=== PATIENT | male | born 1965 | race Caucasian/White ===

== ENCOUNTER → 2019-11-15 08:42 | Outpatient (CLI) | payer BC, SELFPAY ==
[2019-11-15 09:00] LABS: Basophils # 0.1 K/mm3 (0-0.2); Basophils % 0.7 % (0.1-2.0); Eosinophils # 0.2 K/mm3 (0.0-0.4); Eosinophils % 2.4 % (0.1-12.0); Hematocrit 45.6 % (42.0-52.0); Hemoglobin 14.8 g/dL (14.1-18.0); Lymphocytes % 24.3 % (10-50); Mean Corpuscular HGB Conc 32.4 g/dL (31.8-35.4); Mean Corpuscular Hemoglobin 26.8 pg (27.0-31.2); Mean Corpuscular Volume 82.5 fl (80-94); Monocytes # 0.4 K/mm3 (0.1-1.0); Monocytes % 4.5 % (1.7-9.3); Neutrophils # 5.7 K/mm3 (1.8-7.8); Neutrophils % 68.1 % (37.0-80.0); Platelet Count 336 K/mm3 (142-424); Red Blood Count 5.53 M/mm3 (4.60-6.20); Red Cell Distribution Width 14.5 % (11.5-17.5); White Blood Count 8.3 K/mm3 (4.8-10.8)
[2019-11-15 09:14] LABS: Blood Urea Nitrogen 34 mg/dL (7-18); Calcium 7.9 mg/dL (8.5-10.1); Carbon Dioxide 25 mmol/L (21.0-32.0); Chloride 103 mmol/L (98-107); Creatinine,Serum 1.81 mg/dL (0.70-1.30); Estimated Glomerular Filt Rate 39 ml/min (>60); GFR (African American) 47 ML/MIN (>60); Glucose 193 mg/dL (74-106); Sodium 135 mmol/L (136-145)
--- NOTE | 2019-11-15 09:51 | CA_ITS ---
APPROVED REPORT EXAM: Comprehensive 2D, Doppler, and color-flow Echocardiogram Loader Machine: Xochitl Kaur RT(R) Ht: 5 ft 2 in Wt: 152lbs BSA: 1.70 BP: 118/68 mmHg Indications: ex smoker, HTN, diabetes, 2 cardiac stents 1 week ago 2D Dimensions LVOT 1.78 cm (M/F) 1.5-2.5 M-Mode Dimensions RVDd 2.06 cm (0.9-2.6) LVDd 5.11 cm (3.5-5.7) LVDs 3.77 cm (3.5-5.7) IVSd 0.95 cm (0.6-1.1) PWd 0.91 cm (0.6-1.1) EF (Teich) 51.10% FS 26.20% EDV (Teich) 124.40 mL ESV (Teich) 60.80 mL LV Diastology E/A Ratio 1.47 Mitral Valve MV A Velocity 60.00 (40-130 cm/s) Left Ventricle Left atrium is mildly enlarged, left ventricle is normal size, mild concentric left ventricular hypertrophy, visually estimated ejection fraction 50%, there is mild apical wall hypokinesis, grade 1 diastolic dysfunction seen with tissue Doppler evidence of raise left atrial pressure. Right Ventricle Right atrium and right ventricular normal size and contractility. Aortic Valve Aortic valve is thickened and calcified leaflet chordae display good mobility, there is no aortic stenosis or aortic insufficiency. Mitral Valve Mitral valve leaflets are minimally thickened, there is no mitral stenosis, there is mild mitral regurgitation. Tricuspid Valve Tricuspid valve is grossly normal, there is mild tricuspid regurgitation. Pulmonic Valve Pulmonic valve is poorly visualized. Great Vessels Aortic root is normal size. Pericardium Trivial pericardial effusion noted. Conclusion 1. Mildly enlarged left atrium, normal left ventricular size, mild concentric left ventricular hypertrophy, visually estimated ejection fraction of 50% with segmental wall motion abnormality described above. Grade 1 diastolic dysfunction seen with tissue Doppler evidence of raise left atrial pressure. 2. Mild mitral and tricuspid regurgitation. 3. Trivial pericardial effusion noted. Electronically signed by : Bernardo Denise, 11/16/2019 05:58:27
== END ==
PROVIDERS: PCP Family Medicine; Visit Provider Internal Medicine
DX: E11.9 Type 2 diabetes mellitus without complications (principal); E78.5 Hyperlipidemia, unspecified; I10 Essential (primary) hypertension; I20.0 Unstable angina; R06.00 Dyspnea, unspecified; R61 Generalized hyperhidrosis; R94.31 Abnormal electrocardiogram [ECG] [EKG]; Z87.891 Personal history of nicotine dependence; Z95.5 Presence of coronary angioplasty implant and graft; Z79.4 Long term (current) use of insulin
CPT/HCPCS: 36415; 80048; 85025; 93306

== ENCOUNTER → 2021-07-05 13:34 | Outpatient (CLI) | payer BC, SELFPAY ==
[2021-07-05 13:54] LABS: Basophils # 0.1 K/mm3 (0-0.2); Basophils % 0.9 % (0.1-2.0); Eosinophils # 0.3 K/mm3 (0.0-0.4); Eosinophils % 3.2 % (0.1-12.0); Hematocrit 39.7 % (42.0-52.0); Hemoglobin 13.2 g/dL (14.1-18.0); Lymphocytes # 2.2 K/mm3 (0.7-4.5); Lymphocytes % 25.1 % (10-50); Mean Corpuscular HGB Conc 33.3 g/dL (31.8-35.4); Mean Corpuscular Hemoglobin 26.3 pg (27.0-31.2); Mean Corpuscular Volume 78.9 fl (80-94); Mean Platelet Volume 7.9 fl (7.4-10.4); Monocytes # 0.3 K/mm3 (0.1-1.0); Monocytes % 3.7 % (1.7-9.3); Neutrophils # 5.8 K/mm3 (1.8-7.8); Neutrophils % 67.1 % (37.0-80.0); Platelet Count 260 K/mm3 (142-424); Red Blood Count 5.03 M/mm3 (4.60-6.20); Red Cell Distribution Width 14.8 % (11.5-17.5); White Blood Count 8.6 K/mm3 (4.8-10.8)
[2021-07-05 14:10] LABS: Alanine Aminotransferase 18 U/L (12-78); Albumin Level 2.6 g/dl (3.5-5.0); Alkaline Phosphatase 134 U/L (38-126); Anion Gap 12.7 mEq/L (5-15); Aspartate Amino Transferase 20 U/L (17-59); Bilirubin,Total 0.4 mg/dl (0.2-1.3); Blood Urea Nitrogen 36 mg/dl (9-20); Calcium 7.5 mg/dl (8.4-10.2); Carbon Dioxide 18 mmol/L (22.0-30.0); Chloride 110 mmol/L (98-107); Estimated Glomerular Filt Rate 20 ml/min (>60); GFR (African American) 24 ML/MIN (>60); Globulin 2.6 g/dL (1.3-3.2); Glucose 241 mg/dl (74-100); Potassium 4.7 mmoL/L (3.5-5.1); Sodium 136 mmol/L (136-145); Total Protein,Serum 5.2 g/dl (6.3-8.2)
[2021-07-05 14:27] LABS: Hemoglobin A1C 8.3 % (4.0-6.0)
[2021-07-05 14:41] LABS: Prostate Specific Ag Screen 0.3 ng/ml (0.0-4.0)
== END ==
PROVIDERS: Visit Provider Family Medicine
DX: E11.9 Type 2 diabetes mellitus without complications (principal); Z12.5 Encounter for screening for malignant neoplasm of prostate; Z79.4 Long term (current) use of insulin
CPT/HCPCS: 80053; 83036; 85025; G0103

== ENCOUNTER → 2021-08-01 16:51 | Outpatient (CLI) | payer BC, SELFPAY ==
[2021-08-01 18:29] LABS: Alanine Aminotransferase 22 U/L (12-78); Albumin Level 2.7 g/dl (3.5-5.0); Albumin/Globulin Ratio 1.1 (1.1-1.8); Alkaline Phosphatase 85 U/L (38-126); Anion Gap 14.4 mEq/L (5-15); Aspartate Amino Transferase 35 U/L (17-59); Bilirubin,Total 0.5 mg/dl (0.2-1.3); Blood Urea Nitrogen 49 mg/dl (9-20); Calcium 7.5 mg/dl (8.4-10.2); Carbon Dioxide 16 mmol/L (22.0-30.0); Chloride 109 mmol/L (98-107); Estimated Glomerular Filt Rate 19 ml/min (>60); GFR (African American) 23 ML/MIN (>60); Globulin 2.4 g/dL (1.3-3.2); Glucose 117 mg/dl (74-100); Potassium 5.4 mmoL/L (3.5-5.1); Sodium 134 mmol/L (136-145); Total Protein,Serum 5.1 g/dl (6.3-8.2)
== END ==
PROVIDERS: Visit Provider Family Medicine
DX: N28.9 Disorder of kidney and ureter, unspecified (principal)
CPT/HCPCS: 80053

== ENCOUNTER → 2021-08-13 13:02 | Outpatient (CLI) | payer BC, SELFPAY ==
--- NOTE | 2021-08-13 13:03 | US_ITS ---
PROCEDURE: US KIDNEY CLINICAL INDICATION: Decreased renal function COMPARISON: No exams were available for comparison FINDINGS: Right kidney is 11 x 5 x 8 cm. Left kidney is 10 x 6 x 6 cm. No renal mass or hydronephrosis or significant cortical renal thinning. There is a minimal amount. Nephric fluid on both sides. IMPRESSION: Negative appearance of the kidneys by ultrasound Minimal amount of perinephric fluid Dictated by: Edgar Greene MD 08/13/2021 15:28 Edgar Greene MD in [place] 08/13/2021 15:28
== END ==
PROVIDERS: PCP Family Medicine; Visit Provider Family Medicine
DX: N19 Unspecified kidney failure (principal)
CPT/HCPCS: 76770

== ENCOUNTER → 2021-08-15 16:44 | Outpatient (CLI) | payer BC, SELFPAY ==
[2021-08-15 16:55] LABS: Microscopic, Urine URINE MICROSCOPIC (MICROSCOPIC)
[2021-08-15 18:17] LABS: Basophils # 0.1 K/mm3 (0-0.2); Basophils % 1.1 % (0.1-2.0); Eosinophils # 0.3 K/mm3 (0.0-0.4); Eosinophils % 3.9 % (0.1-12.0); Hematocrit 34.8 % (42.0-52.0); Hemoglobin 11.2 g/dL (14.1-18.0); Lymphocytes # 2.6 K/mm3 (0.7-4.5); Lymphocytes % 31.4 % (10-50); Mean Corpuscular HGB Conc 32.1 g/dL (31.8-35.4); Mean Corpuscular Hemoglobin 27.3 pg (27.0-31.2); Mean Corpuscular Volume 85.1 fl (80-94); Monocytes # 0.5 K/mm3 (0.1-1.0); Monocytes % 5.4 % (1.7-9.3); Neutrophils # 4.9 K/mm3 (1.8-7.8); Neutrophils % 58.2 % (37.0-80.0); Platelet Count 268 K/mm3 (142-424); Red Blood Count 4.08 M/mm3 (4.60-6.20); Red Cell Distribution Width 14.2 % (11.5-17.5); White Blood Count 8.4 K/mm3 (4.8-10.8)
[2021-08-15 18:20] LABS: Chloride 110 mmol/L (98-107); Potassium 4.8 mmoL/L (3.5-5.1); Sodium 136 mmol/L (136-145)
[2021-08-15 18:23] LABS: Anion Gap 12.8 mEq/L (5-15); Blood Urea Nitrogen 51 mg/dl (9-20); Calcium 7.5 mg/dl (8.4-10.2); Carbon Dioxide 18 mmol/L (22.0-30.0); Estimated Glomerular Filt Rate 19 ml/min (>60); GFR (African American) 23 ML/MIN (>60); Glucose 111 mg/dl (74-100)
[2021-08-15 18:24] LABS: Magnesium 1.9 mg/dl (1.6-2.3)
[2021-08-15 18:25] LABS: Appearance,Urine CLEAR (Clear); Bilirubin,Urine Negative (Negative); Blood, Urine 1+ (Negative); Color,Urine STRAW (Yellow); Glucose,Urine (UA) 2+ (Negative); Ketones,Urine Negative (Negative); Leukocyte Esterase,Urine Negative (Negative); Nitrate,Urine Negative (Negative); Protein,Urine 3+ (Negative); Specific Gravity, Urine >= 1.030 (1.005-1.030); Urobilinogen,Urine 0.2 EU/dl (0.2)
[2021-08-15 18:49] LABS: Uric Acid 5.3 mg/dl (3.5-8.5)
[2021-08-15 19:02] LABS: Intact Parathyroid Hormone 409.8 pg/mL (7.5-53.5)
[2021-08-15 20:18] LABS: 25-OH Vitamin D, Total < 12.8 ng/mL (30-100)
[2021-08-16 12:39] LABS: Creatinine,Urine Random 76 mg/dL (Not Estab.)
[2021-08-27 22:21] LABS: 1,25 Dihydroxy Vitamin D 26 pg/mL (.); 1,25-Dihydroxy, Vitamin D-2 <10 pg/mL (.); 1,25-Dihydroxy, Vitamin D-3 26 pg/mL (.)
== END ==
PROVIDERS: Visit Provider Internal Medicine
DX: N18.9 Chronic kidney disease, unspecified (principal); E78.5 Hyperlipidemia, unspecified; E11.9 Type 2 diabetes mellitus without complications; E55.9 Vitamin D deficiency, unspecified; Z79.4 Long term (current) use of insulin
CPT/HCPCS: 36415; 80048; 81001; 82306; 82570; 82652; 83735; 83970; 84155; 84166; 84550; 85025

== ENCOUNTER → 2021-10-03 13:54 | Outpatient (CLI) | payer BC, SELFPAY ==
[2021-10-03 14:11] LABS: Basophils # 0.1 K/mm3 (0-0.2); Basophils % 0.8 % (0.1-2.0); Eosinophils # 0.2 K/mm3 (0.0-0.4); Eosinophils % 2.7 % (0.1-12.0); Hematocrit 34.4 % (42.0-52.0); Lymphocytes # 1.7 K/mm3 (0.7-4.5); Lymphocytes % 25.3 % (10-50); Mean Corpuscular Hemoglobin 27.8 pg (27.0-31.2); Mean Corpuscular Volume 87.1 fl (80-94); Mean Platelet Volume 8.3 fl (7.4-10.4); Monocytes # 0.3 K/mm3 (0.1-1.0); Monocytes % 4.4 % (1.7-9.3); Neutrophils # 4.5 K/mm3 (1.8-7.8); Neutrophils % 66.8 % (37.0-80.0); Platelet Count 310 K/mm3 (142-424); Red Blood Count 3.94 M/mm3 (4.60-6.20); Red Cell Distribution Width 14.9 % (11.5-17.5); White Blood Count 6.7 K/mm3 (4.8-10.8)
[2021-10-03 14:53] LABS: Hemoglobin A1C 5.1 % (4.0-6.0)
[2021-10-03 15:20] LABS: Anion Gap 10.2 mEq/L (5-15); Blood Urea Nitrogen 57 mg/dl (9-20); Calcium 6.9 mg/dl (8.4-10.2); Carbon Dioxide 17 mmol/L (22.0-30.0); Chloride 111 mmol/L (98-107); Chol/HDL Ratio 5.8 (1-3.5); Cholesterol 263 mg/dl (140-200); Estimated Glomerular Filt Rate 15 ml/min (>60); GFR (African American) 18 ML/MIN (>60); Glucose 165 mg/dl (74-100); HDL Cholesterol 45 mg/dl (40-60); Phosphorous 7.2 mg/dl (2.5-4.5); Potassium 5.2 mmoL/L (3.5-5.1); Sodium 133 mmol/L (136-145); Triglycerides 142 mg/dl (30-150); VLDL Cholesterol 28 mg/dL (0-40)
[2021-10-03 15:30] LABS: Direct LDL Cholesterol 176.99 mg/dL (100-129)
[2021-10-03 15:41] LABS: 25-OH Vitamin D, Total < 12.8 ng/mL (30-100)
== END ==
PROVIDERS: Visit Provider Family Medicine
DX: E11.9 Type 2 diabetes mellitus without complications (principal); E55.9 Vitamin D deficiency, unspecified; Z79.4 Long term (current) use of insulin
CPT/HCPCS: 80048; 80061; 82306; 83036; 83970; 84100; 85025; 86140

== ENCOUNTER 2021-11-30 15:03 | Emergency (ER) | payer BC, SELFPAY ==
[2021-11-30 15:05] VITALS: BP 196/89; PULSE 80; RESP 28; TEMP 37.1; O2SAT 98; BMI 26.9
--- NOTE | 2021-11-30 15:13 | XR_ITS ---
PROCEDURE INFORMATION: Exam: XR Chest Exam date and time: 11/30/2021 3:13 PM Age: 56 years old Clinical indication: Shortness of breath; Additional info: Short of breath TECHNIQUE: Imaging protocol: XR of the chest. Views: 1 view. COMPARISON: No relevant prior studies available. FINDINGS: Lungs: Innumerable punctate densities are noted throughout both lungs. Patchy airspace opacities consistent with pneumonia present within both lung bases, greater on the right. Pleural spaces: Right pleural effusion. There is no evidence of pneumothorax. Heart/Mediastinum: Unremarkable. No cardiomegaly. Bones/joints: The thoracic spine demonstrates mild degenerative changes at multiple levels. IMPRESSION: 1. Innumerable punctate densities are noted throughout both lungs. Comparison with prior studies and/or follow-up CT scan of the chest is recommended. 2. Patchy airspace opacities consistent with pneumonia present within both lung bases, greater on the right. 3. Right pleural effusion.
--- NOTE | 2021-11-30 15:18 | HMH.EDGENADL ---
ED Disposition Clinical Impression: Chronic kidney disease, stage IV (severe), Pedal edema, Calcified granuloma of lung CHF (congestive heart failure) Qualifiers: Heart failure type: unspecified Heart failure chronicity: unspecified Qualified Code(s): I50.9 - Heart failure, unspecified Disposition: Home, Self-Care Condition on Discharge: Fair Instructions: Chronic Kidney Disease, DI for Dependent Edema, DI for Peripheral Edema -- Bilateral Additional Instructions: You have been evaluated for lower extremity swelling, pedal edema. Please follow salt restriction. Elevate your legs when at rest. Take 40 mg daily Lasix. You have advanced chronic kidney disease. Also an element of congestive heart failure. Please follow-up with your design editor, Dr. Cisneros. Follow-up with your primary care physician, Dr. Zimmerman, on Thursday. You would likely benefit from an echocardiogram. Your chest x-ray shows small areas of calcification, likely granulomas. Please have a chest CT within the next 6 months. Return to the emergency department for any new or worsening symptoms, difficulty breathing, pain, other concerns. Prescriptions: Furosemide [Lasix 40mg tab] 40 mg PO DAILY #10 tab Transmission Status: Received by [id number] Referrals: Guanako Zimmerman MD [Primary Care Provider] - Time of Disposition: 17:01 - Critical Care Critical Care Time: No Attestation: On , the high probability of a clinically significant, sudden or life threatening deterioration of the following system(s) required my full and direct attention, intervention and personal management. The time I documented below is in addition to time spent performing reported procedures but includes the following listed in this critical care notation. Medical Decision Making - Medical Records Medical records reviewed: Yes: I reviewed the patient's medical records. - Seth Inquiry Pt receiving controlled substance: No Vital Signs: 11/30/21 15:05 11/30/21 16:00 11/30/21 16:29 Temperature 98.7 F Temperature Source Oral Pulse Rate 75 68 Pulse Rate [Radial] 80 Respiratory Rate 28 H Blood Pressure 147/72 H 136/74 Blood Pressure [Right Arm] 196/89 H Blood Pressure Mean [Right Arm] 124 Blood Pressure Position [Right Arm] Sitting 02 Sat by Pulse Oximetry 98 97 96 Oxygen Delivery Method Room Air 11/30/21 17:01 Temperature Temperature Source Pulse Rate 70 Pulse Rate [Radial] Respiratory Rate Blood Pressure 156/81 H Blood Pressure [Right Arm] Blood Pressure Mean [Right Arm] Blood Pressure Position [Right Arm] 02 Sat by Pulse Oximetry 99 Oxygen Delivery Method - Lab Data Lab Results 11/30/21 15:14: WBC 8.3, RBC 3.67 L, Hgb 10.3 L, Hct 31.9 L, MCV 86.7, MCH 28.1, MCHC 32.4, RDW 14.3, Plt Count 287, MPV 7.6, Neut % (Auto) 70.2, Lymph % (Auto) 20.2, [place] % (Auto) 4.8, Eos % (Auto) 3.7, Baso % (Auto) 1.2, Neut # (Auto) 5.8, Lymph # (Auto) 1.7, [place] # (Auto) 0.4, Eos # (Auto) 0.3, Baso # (Auto) 0.1 11/30/21 15:14: Sodium 139, Potassium 4.9, Chloride 110 H, Carbon Dioxide 22, Anion Gap 11.9, BUN 51 H, Creatinine 4.50 H, Estimated Creat Clear 18, Estimated GFR 14 L*, Est GFR ( Amer) 16 L*, Glucose 165 H, Calcium 7.4 L, Total Bilirubin 0.2, AST 21, ALT 18, Alkaline Phosphatase 76, Total Protein 5.5 L, Albumin 2.7 L, Globulin 2.8, Albumin/Globulin Ratio 1.0 L 11/30/21 15:14: NT-Pro-B Natriuret Pep 9690 H Result diagrams: 11/30/21 15:14 11/30/21 15:14 Orders (Tests/Meds): ED MEDICATIONS Discontinued Medications Generic Name Dose Route Start Last Admin Trade Name Freq PRN Reason Stop Dose Admin Furosemide 40 mg 11/30/21 16:54 11/30/21 17:10 Furosemide 40 Mg Tablet PO 11/30/21 16:55 Not Given ONCE ONE Furosemide 40 mg 11/30/21 16:57 11/30/21 17:06 Furosemide 40mg/4ml Vial IV 11/30/21 16:58 40 mg ONCE ONE Administration ORDERS Category Date Time Status Urinalysis and Microscopic Stat
--- NOTE | 2021-11-30 15:20 | ECG_ITS ---
APPROVED REPORT Exam: Resting ECG HR:75 bpm ECG Measurements Heart Rate 75 AXES MO 152 P 26 QRSd 88 QRS -14 QT 382 T 54 QTc 426 Conclusion Normal sinus rhythm Normal ECG Electronically signed by : Freddy Mora MD 12/02/2021 21:42:54
[2021-11-30 15:31] LABS: Basophils # 0.1 K/mm3 (0-0.2); Basophils % 1.2 % (0.1-2.0); Eosinophils # 0.3 K/mm3 (0.0-0.4); Eosinophils % 3.7 % (0.1-12.0); Hematocrit 31.9 % (42.0-52.0); Hemoglobin 10.3 g/dL (14.1-18.0); Lymphocytes # 1.7 K/mm3 (0.7-4.5); Lymphocytes % 20.2 % (10-50); Mean Corpuscular HGB Conc 32.4 g/dL (31.8-35.4); Mean Corpuscular Hemoglobin 28.1 pg (27.0-31.2); Mean Corpuscular Volume 86.7 fl (80-94); Mean Platelet Volume 7.6 fl (7.4-10.4); Monocytes # 0.4 K/mm3 (0.1-1.0); Monocytes % 4.8 % (1.7-9.3); Neutrophils # 5.8 K/mm3 (1.8-7.8); Neutrophils % 70.2 % (37.0-80.0); Platelet Count 287 K/mm3 (142-424); Red Blood Count 3.67 M/mm3 (4.60-6.20); Red Cell Distribution Width 14.3 % (11.5-17.5); White Blood Count 8.3 K/mm3 (4.8-10.8)
[2021-11-30 15:38] LABS: Chloride 110 mmol/L (98-107); Potassium 4.9 mmoL/L (3.5-5.1); Sodium 139 mmol/L (136-145)
[2021-11-30 15:40] LABS: Alanine Aminotransferase 18 U/L (12-78); Aspartate Amino Transferase 21 U/L (17-59); Blood Urea Nitrogen 51 mg/dl (9-20); Creatinine Clearance Estimated 18 mL/min (50-200); Estimated Glomerular Filt Rate 14 ml/min (>60); GFR (African American) 16 ML/MIN (>60)
[2021-11-30 15:41] LABS: Albumin Level 2.7 g/dl (3.5-5.0); Alkaline Phosphatase 76 U/L (38-126); Anion Gap 11.9 mEq/L (5-15); Bilirubin,Total 0.2 mg/dl (0.2-1.3); Calcium 7.4 mg/dl (8.4-10.2); Carbon Dioxide 22 mmol/L (22.0-30.0); Globulin 2.8 g/dL (1.3-3.2); Glucose 165 mg/dl (74-100); Total Protein,Serum 5.5 g/dl (6.3-8.2)
[2021-11-30 15:50] LABS: NT Pro Brain Natriuretic Pep. 9690 pg/mL (0-125)
--- NOTE | 2021-11-30 15:55 | PC.NURSE ---
critical lab values called to con howell rn
[2021-11-30 16:00] VITALS: BP 147/72; PULSE 75; O2SAT 97
[2021-11-30 16:29] VITALS: BP 136/74; PULSE 68; O2SAT 96
[2021-11-30 17:01] VITALS: BP 156/81; PULSE 70; O2SAT 99
[2021-11-30 17:44] VITALS: BP 159/86; PULSE 78; RESP 18; TEMP 36.6; O2SAT 98
== END 2021-11-30 17:45 | disposition home or self-care (01) ==
PROVIDERS: Emergency Provider Emergency Medicine; PCP Family Medicine
DX: I50.9 Heart failure, unspecified (principal); N18.4 Chronic kidney disease, stage 4 (severe); I10 Essential (primary) hypertension; E11.65 Type 2 diabetes mellitus with hyperglycemia; F17.210 Nicotine dependence, cigarettes, uncomplicated
CPT/HCPCS: 71045; 80053; 83880; 85025; 93005; 96374; 99283

== ENCOUNTER → 2021-12-12 09:22 | Outpatient (CLI) | payer BC, OTHER, SELFPAY ==
--- NOTE | 2021-12-12 09:36 | CA_ITS ---
APPROVED REPORT EXAM: Comprehensive 2D, Doppler, and color-flow Echocardiogram Maintenance Aide: Shannon Granado CRT Ht: 5 ft 4 in Wt: 165lbs BSA: 1.80 BP: 187/84 mmHg Indications: EDEMA, CAD, STENTS, HTN, HLD 2D Dimensions LVOT 1.99 cm (M/F) 1.5-2.5 LA Volume 45.40 mL LA Volume Index 25.20 mL/m2 (M/F) 16-34 M-Mode Dimensions RVDd 3.26 cm (0.9-2.6) LA Diam 3.76 cm (1.9-4.0) LVDd 5.12 cm (3.5-5.7) Ao Diam 4.13 cm (2.0-3.7) LVDs 3.76 cm (3.5-5.7) IVSd 1.40 cm (0.6-1.1) PWd 0.82 cm (0.6-1.1) EF (Teich) 51.60% FS 26.60% EDV (Teich) 124.90 mL TAPSE 1.52 (<1.7) ESV (Teich) 60.40 mL LV Diastology E Decel Time 177.00 (160-240 msec) E/A Ratio 1.14 MED E' 5.80 (< 7 cm/sec) MED A' 6.00 cm/s E'/MED E' Ratio 17.26 (>14) LAT E' 7.20 (<10 cm/sec) LAT A' 8.10 cm/s E/LAT E' Ratio 13.90 (>14) Aortic Valve AO Peak GR. 7.40 mmHg Mitral Valve MV A Velocity 88.00 (40-130 cm/s) E/A Ratio 1.14 MV Decel. Time 177.00 (160-240 ms) Pulmonary Valve PV Peak Velocity 94.00 (50-150 cm/s) Tricuspid Valve TR P. Velocity 259.00 cm/s RAP Estimate 10.00 mmHg RVSP 36.80 mmHg Left Ventricle Left atrium is qualitatively mildly enlarged, left ventricular is normal size, there is no concentric left ventricular hypertrophy, visually estimated ejection fraction 55% with no regional wall motion abnormality, diastolic parameters appears to be normal. Right Ventricle Right atrium is normal size, right ventricular appears to be mildly enlarged with normal contractility. Aortic Valve Aortic valve is grossly normal, there is no aortic stenosis or aortic insufficiency. Mitral Valve Mitral valve is grossly normal, there is trace mitral regurgitation. Tricuspid Valve Tricuspid grossly normal, there is trace tricuspid regurgitation, calculated right ventricular systolic pressure is 38 mmHg. Pulmonic Valve Pulmonic valve is poorly visualized. Great Vessels Aortic root is normal size. Inferior vena cava is normal size with normal inspiratory collapse. Pericardium Small circumferential pericardial effusion noted. Conclusion 1. Mildly enlarged left atrium, normal left ventricular size, visually estimated ejection fraction 55% with no regional wall motion abnormality, diastolic parameters are within normal range. 2. Mildly enlarged right ventricle with normal contractility. 3. Trace mitral and tricuspid regurgitation, calculated right ventricular systolic pressure 38 mmHg. 4. Small circumferential pericardial effusion noted. 5. Inferior vena cava is normal size with normal inspiratory collapse. Electronically signed by : Bernardo Denise MD 12/13/2021 09:24:04
[2021-12-12 09:52] LABS: Basophils # 0.1 K/mm3 (0-0.2); Basophils % 0.9 % (0.1-2.0); Eosinophils # 0.2 K/mm3 (0.0-0.4); Eosinophils % 3.2 % (0.1-12.0); Hemoglobin 9.9 g/dL (14.1-18.0); Lymphocytes # 1.4 K/mm3 (0.7-4.5); Lymphocytes % 20.8 % (10-50); Mean Corpuscular HGB Conc 33.1 g/dL (31.8-35.4); Mean Corpuscular Volume 84.5 fl (80-94); Mean Platelet Volume 7.9 fl (7.4-10.4); Monocytes # 0.3 K/mm3 (0.1-1.0); Monocytes % 4.2 % (1.7-9.3); Neutrophils # 4.8 K/mm3 (1.8-7.8); Neutrophils % 70.9 % (37.0-80.0); Platelet Count 276 K/mm3 (142-424); Red Blood Count 3.55 M/mm3 (4.60-6.20); Red Cell Distribution Width 14.1 % (11.5-17.5); White Blood Count 6.7 K/mm3 (4.8-10.8)
[2021-12-12 10:31] LABS: Creatinine,Urine Random 36 mg/dL (Not Estab.)
[2021-12-12 10:45] LABS: Anion Gap 10.3 mEq/L (5-15); Blood Urea Nitrogen 56 mg/dl (9-20); Calcium 7.3 mg/dl (8.4-10.2); Carbon Dioxide 25 mmol/L (22.0-30.0); Chloride 104 mmol/L (98-107); Estimated Glomerular Filt Rate 14 ml/min (>60); GFR (African American) 16 ML/MIN (>60); Glucose 106 mg/dl (74-100); Phosphorous 5.9 mg/dl (2.5-4.5); Potassium 5.3 mmoL/L (3.5-5.1); Sodium 134 mmol/L (136-145); Uric Acid 6.8 mg/dl (3.5-8.5)
[2021-12-12 10:57] LABS: Intact Parathyroid Hormone 434.7 pg/mL (7.5-53.5)
[2021-12-12 11:04] LABS: 25-OH Vitamin D, Total < 12.8 ng/mL (30-100)
[2021-12-19 18:10] LABS: 1,25 Dihydroxy Vitamin D 28 pg/mL (.); 1,25-Dihydroxy, Vitamin D-2 <10 pg/mL (.); 1,25-Dihydroxy, Vitamin D-3 28 pg/mL (.)
== END ==
PROVIDERS: PCP Family Medicine; Visit Provider Family Medicine
DX: N18.9 Chronic kidney disease, unspecified (principal); I50.9 Heart failure, unspecified; I10 Essential (primary) hypertension; D64.9 Anemia, unspecified
CPT/HCPCS: 36415; 80048; 82306; 82570; 82652; 83970; 84100; 84155; 84550; 85025; 93306

== ENCOUNTER 2022-08-05 09:54 | Emergency (ER) | payer OTHER, SELFPAY ==
[2022-08-05 09:55] VITALS: BP 139/73; PULSE 66; RESP 18; TEMP 36.5; O2SAT 98; BMI 27.4
--- NOTE | 2022-08-05 10:12 | PC.NURSE ---
K.BROWN ROUNDED ON PT SHE IS C/O NAUSEA
--- NOTE | 2022-08-05 10:27 | XR_ITS ---
FINAL REPORT CLINICAL HISTORY: GENERAL WEAKNESS COMPARISON: November 30, 2021 FINDINGS: The heart size is normal. The mediastinum is normal. There is no focal infiltrate or edema. There are numerous calcified granulomas throughout both lungs. There is improvement in the previous right pleural effusion. There is no pneumothorax. There is no osseous abnormality. IMPRESSION: No acute cardiopulmonary process Reviewed, Interpreted and Dictated by Lazaro Ernst III, MD Transcribed by Sal Botello Authenticated and [facility]
[2022-08-05 10:33] LABS: Influenza A, PCR Not Detected (NotDetected); Influenza B, PCR Not Detected (NotDetected)
[2022-08-05 10:39] LABS: Basophils % 0.4 % (0.1-2.0); Eosinophils # 0.1 K/mm3 (0.0-0.4); Hematocrit 31.4 % (42.0-52.0); Hemoglobin 10.8 g/dL (14.1-18.0); Lymphocytes # 1.1 K/mm3 (0.7-4.5); Lymphocytes % 17.3 % (10-50); Mean Corpuscular HGB Conc 34.4 g/dL (31.8-35.4); Mean Corpuscular Volume 81.4 fl (80-94); Mean Platelet Volume 7.5 fl (7.4-10.4); Monocytes # 0.4 K/mm3 (0.1-1.0); Monocytes % 5.5 % (1.7-9.3); Neutrophils # 4.8 K/mm3 (1.8-7.8); Neutrophils % 75.6 % (37.0-80.0); Platelet Count 286 K/mm3 (142-424); Red Blood Count 3.86 M/mm3 (4.60-6.20); Red Cell Distribution Width 14.3 % (11.5-17.5); White Blood Count 6.3 K/mm3 (4.8-10.8)
[2022-08-05 10:43] LABS: Alanine Aminotransferase 27 U/L (12-78); Albumin Level 3.5 g/dl (3.5-5.0); Albumin/Globulin Ratio 1.1 (1.1-1.8); Alkaline Phosphatase 108 U/L (38-126); Anion Gap 20.2 mEq/L (5-15); Aspartate Amino Transferase 36 U/L (17-59); Bilirubin,Total 0.2 mg/dl (0.2-1.3); Calcium 7.2 mg/dl (8.4-10.2); Carbon Dioxide 21 mmol/L (22.0-30.0); Chloride 94 mmol/L (98-107); Globulin 3.2 g/dL (1.3-3.2); Glucose 139 mg/dl (74-100); Potassium 3.2 mmoL/L (3.5-5.1); Sodium 132 mmol/L (136-145); Total Protein,Serum 6.7 g/dl (6.3-8.2)
[2022-08-05 10:50] LABS: Creatinine Clearance Estimated 6 mL/min (50-200); Estimated Glomerular Filt Rate 4 ml/min (>60); GFR (African American) 5 ML/MIN (>60)
[2022-08-05 10:51] LABS: Blood Urea Nitrogen 118 mg/dl (9-20)
[2022-08-05 11:10] LABS: Coronavirus 19, PCR Detected (NotDetected)
--- NOTE | 2022-08-05 11:26 | PC.NURSE ---
ED MD AT BEDSIDE FOR EVALUATION
--- NOTE | 2022-08-05 11:26 | PC.NURSE ---
1051 CRITICAL LABS BUN [address] URIARTE NOTIFIED. NO NEW ORDERS AT THIS TIME
[2022-08-05 12:00] VITALS: BP 138/73; PULSE 69; O2SAT 99
--- NOTE | 2022-08-05 12:13 | PC.NURSE ---
TITA HUNTLEY SPEAKING WITH DR. MARSHALL FOR CONSULT
[2022-08-05 12:30] VITALS: BP 147/80; PULSE 66; O2SAT 100
--- NOTE | 2022-08-05 12:57 | PC.NURSE ---
ED MD AT BEDSIDE TO DISCUSS POC WITH PT
[2022-08-05 13:00] VITALS: BP 136/71; PULSE 60; O2SAT 100
--- NOTE | 2022-08-05 13:00 | HMH.EDGENADL ---
Discharge Plan Disposition Patient Disposition: Home, Self-Care Condition: Fair Prescriptions Prescriptions: New Paxlovid (EUA) 300 mg (150 mg x 2)-100 mg tablets,dose pack See Rx Instructions .ROUTE .COMPLEX Qty: 30 0RF Rx Instructions: take TWO 150 mg tablets of nirmatrelvir with ONE 100 mg tablet of ritonavir twice daily for 5 days azithromycin 500 mg tablet 500 mg PO DAILY 5 Days Qty: 5 0RF No Action aspirin [Adult Low Dose Aspirin] 81 mg tablet,delayed release (DR/EC) 81 mg PO DAILY Qty: 100 10RF torsemide 20 mg tablet 20 mg PO TID Label Comments: TAKE 1 TABLET BY MOUTH THREE TIMES DAILY Velphoro 500 mg tablet,chewable 500 mg PO TID calcitriol 0.25 mcg capsule 0.25 mcg PO DAILY Qty: 90 3RF mupirocin 2 % ointment 1 applic TOPICAL TID Qty: 22 5RF clonidine HCl 0.1 mg tablet 0.2 mg PO Q8H Qty: 90 3RF minoxidil 2.5 mg tablet 2.5 mg PO BID Qty: 180 3RF sodium bicarbonate 650 mg tablet 650 mg PO TID Qty: 90 5RF insulin glargine [Lantus Solostar U-100 Insulin] 100 unit/mL (3 mL) insulin pen 25 unit SQ HS Qty: 15 10RF insulin lispro [Humalog KwikPen Insulin] 100 unit/mL insulin pen See Rx Instructions .ROUTE .COMPLEX Qty: 15 10RF Rx Instructions: 10 units daily 1/2 hour before supper; atorvastatin 80 mg tablet 80 mg PO DAILY Qty: 90 3RF carvedilol [Coreg] 25 mg tablet 25 mg PO BID Qty: 180 3RF Rx Instructions: must administer with a meal/food fluoxetine 20 mg capsule 20 mg PO DAILY Qty: 90 3RF (DME) pen needle, diabetic [Lite Touch Insulin Pen [place]] 31 gauge x 1/4 needle See Rx Instructions .Route Qty: 100 10RF Rx Instructions: As directed peg 3350-electrolytes [Golytely] 236-22.74-6.74 -5.86 gram recon soln 240 ml PO Q10M Qty: 4000 0RF Rx Instructions: until fecal effluent is clear Referrals Follow up/Referrals: Guanako Zimmerman MD [Primary Care Provider] - See instructions Activity Restrictions/Add. Instructions Additional Instructions/Restrictions: Recommend using your larger peritoneal dialysis bag tonight. Please follow-up with Dr. Zimmerman tomorrow to check-in. Clinical Impressions Clinical Impression: COVID, ESRD (end stage renal disease) Instructions Patient Instructions: DI for COVID-19 (Suspected or Confirmed ) Discharge ED Provider: Ki Best General Adult HPI General Chief complaint: Nausea/Vomiting/Diarrhea Stated complaint: vomiting Time Seen by Provider: 08/05/22 10:15 Mode of Arrival: Ambulatory Limitations: No Limitations Description of Symptoms (Recalled from ER Triage Doc. by RN): PT REPORTS VOMITING, STARTED ON THURSDAY. YELLOW/GREEN IN COLOR. PT RECEIVES DIALYSIS History of Present Illness HPI narrative: Patient is a 57-year-old male with a past medical history of end-stage renal disease currently on the transplant list who presents with concern for fever, chills. He says that his symptoms started yesterday. He says that also over the last day he started to have a yellow-green sputum production. He denies any shortness of breath or chest pain. He also complains of cough and congestion. He continues to do his peritoneal dialysis. He says that he was a little bit dizzy so they recommended him doing a little less dialysis than normal. Related Data Home Medications Medication Instructions Recorded Confirmed sucroferric oxyhydroxide 500 mg 500 mg PO TID 03/06/22 07/25/22 chewable tablet (Velphoro) torsemide 20 mg tablet 20 mg PO TID 03/06/22 07/25/22 Previous Rx's Medication Instructions Recorded aspirin 81 mg tablet,delayed 81 mg PO DAILY #100 tabs 10/03/21 release (Adult Low Dose Aspirin) calcitriol 0.25 mcg capsule 0.25 mcg PO DAILY #90 caps 02/21/22 clonidine HCl 0.1 mg tablet 0.2 mg PO Q8H #90 tabs 02/21/22 minoxidil 2.5 mg tablet 2.5 mg PO BID #180 tabs 02/21/22 mupirocin 2 % topical ointment 1 applic topical TID #22
[2022-08-05 13:13] VITALS: BP 136/71; PULSE 64; RESP 18; TEMP 36.7; O2SAT 100
== END 2022-08-05 13:15 | disposition home or self-care (01) ==
PROVIDERS: Emergency Provider Student in an Organized Health Care Education/Training Program; PCP Family Medicine
DX: U07.1 COVID-19 (principal); I12.0 Hypertensive chronic kidney disease with stage 5 chronic kidney disease or end stage renal disease; N18.6 End stage renal disease; I25.10 Atherosclerotic heart disease of native coronary artery without angina pectoris; E11.22 Type 2 diabetes mellitus with diabetic chronic kidney disease; R11.2 Nausea with vomiting, unspecified; R19.7 Diarrhea, unspecified; Z99.2 Dependence on renal dialysis; Z86.73 Personal history of transient ischemic attack (TIA), and cerebral infarction without residual deficits; Z79.4 Long term (current) use of insulin; Z79.82 Long term (current) use of aspirin; Z79.899 Other long term (current) drug therapy
CPT/HCPCS: 71045; 80053; 85025; 96374; 99283; C9803; J2405; U0003; U0005

== ENCOUNTER → 2022-08-14 03:30 | Outpatient (CLI) | payer OTHER, SELFPAY ==
[2022-08-14 18:32] LABS: Chloride 95 mmol/L (98-107); Potassium 3.3 mmoL/L (3.5-5.1); Sodium 132 mmol/L (136-145)
[2022-08-14 18:34] LABS: Alanine Aminotransferase 32 U/L (12-78); Alkaline Phosphatase 78 U/L (38-126); Anion Gap 22.3 mEq/L (5-15); Aspartate Amino Transferase 28 U/L (17-59); Bilirubin,Total 0.2 mg/dl (0.2-1.3); Carbon Dioxide 18 mmol/L (22.0-30.0); Estimated Glomerular Filt Rate 4 ml/min (>60); GFR (African American) 5 ML/MIN (>60)
[2022-08-14 18:35] LABS: Albumin Level 3.4 g/dl (3.5-5.0); Albumin/Globulin Ratio 1.4 (1.1-1.8); Calcium 6.9 mg/dl (8.4-10.2); Globulin 2.5 g/dL (1.3-3.2); Glucose 252 mg/dl (74-100); Total Protein,Serum 5.9 g/dl (6.3-8.2)
[2022-08-14 19:06] LABS: Blood Urea Nitrogen 89 mg/dl (9-20)
== END ==
PROVIDERS: PCP Family Medicine; Visit Provider Family Medicine
DX: E78.2 Mixed hyperlipidemia (principal)
CPT/HCPCS: 80053

== ENCOUNTER → 2022-08-22 13:58 | Outpatient (CLI) | payer OTHER, SELFPAY ==
[2022-08-22 15:15] LABS: Alanine Aminotransferase 36 U/L (12-78); Albumin Level 3.6 g/dl (3.5-5.0); Albumin/Globulin Ratio 1.3 (1.1-1.8); Alkaline Phosphatase 83 U/L (38-126); Anion Gap 25.8 mEq/L (5-15); Aspartate Amino Transferase 25 U/L (17-59); Bilirubin,Total 0.5 mg/dl (0.2-1.3); Calcium 7.6 mg/dl (8.4-10.2); Carbon Dioxide 23 mmol/L (22.0-30.0); Chloride 89 mmol/L (98-107); Estimated Glomerular Filt Rate 4 ml/min (>60); GFR (African American) 5 ML/MIN (>60); Globulin 2.7 g/dL (1.3-3.2); Glucose 137 mg/dl (74-100); Potassium 3.8 mmoL/L (3.5-5.1); Sodium 134 mmol/L (136-145); Total Protein,Serum 6.3 g/dl (6.3-8.2)
[2022-08-22 15:23] LABS: Blood Urea Nitrogen 86 mg/dl (9-20)
== END ==
PROVIDERS: PCP Family Medicine; Visit Provider Family Medicine
DX: E78.5 Hyperlipidemia, unspecified (principal)
CPT/HCPCS: 80053

== ENCOUNTER → 2022-08-25 11:36 | Outpatient (CLI) | payer OTHER, SELFPAY | PROVIDERS: PCP Family Medicine; Visit Provider Surgery | DX: U07.1 COVID-19 (principal) | CPT/HCPCS: C9803; U0003; U0005 ==

== ENCOUNTER 2022-08-26 12:18 | Day surgery (SDC) | payer OTHER, SELFPAY ==
[2022-08-25 12:05] VITALS: BMI 27.4
[2022-08-26] VITALS (10 sets, daily range): BP systolic 92–173; BP diastolic 54–96; PULSE 62–71; RESP 16–18; TEMP 36.2; O2SAT 97–100
--- NOTE | 2022-08-26 12:36 | P.PN_ITS ---
PFSH PFS Medical History Allergies CAD (coronary artery disease) Cholecystectomy planned Depression Diabetes Diabetes mellitus, type 2 Dialysis patient Edema Glaucoma Heart attack History of cataract History of COVID-19 History of gastroesophageal reflux (GERD) Hyperlipidemia Hypertension Skin cancer Stroke Surgical History H/O rotator cuff surgery History of coronary artery stent placement Family History Other No significant family history Social History Smoking Status: Former smoker years smoked: 15 how long ago did patient quit smokin second hand exposure: No alcohol intake: never substance use type: denies use current occupational status: disabled Travel in the last 8 weeks: None household members: significant other housing: house current occupational exposures/hazards: Yes [facility] Anesthesia Checklist Patient Identification Patient Identification: Arm Band and Verbal (Name & ) Structural Data Admitted From: Home Planned Operative Procedure/s: Colonoscopy Consent for Planned Operative Procedure(s) Verified: Yes NPO Status Verified Time NPO: 10:00 (Prep) Chart Verification Results Verified: CBC and BMP Additional verifications Fingerstick Blood Glucose: 98 Anesthesia Reactions: No Airway Assessment C-Spine Mobility Assessed: Yes TMJ Mobility Assessed: Yes Dentition: Good Dentition Neurological Assessment Level of Consciousness: Awake Hx Seizures: No Numbness or tingling in extremities: No Anesthesia Plan Anesthesia Risk discussed: Yes Anesthesia Plan: Verified ASA Class: IV Anesthesia Type: MAC
[2022-08-26 12:47] LABS: POC Glucose,Bedside 98 (70-110)
--- NOTE | 2022-08-26 13:33 | HMH.SCOPE ---
Procedure: Date: 08/26/22 Patient Date of :: 1965 Procedure Performed:: Colonoscopy with polypectomy Indications:: Screening (part of pre-transplant oncologic evaluation) Performing Provider:: Brett Yusuf MD Referring Provider:: . Sedation:: Monitored anesthesia care Procedure:: After informed consent was obtained the patient was taken to the endoscopy suite. Sedation ensued after the patient was transferred to the left lateral decubitus position. Pulse, blood pressure, and oxygen saturation were monitored throughout the procedure. Digital rectal exam revealed no significant abnormality. The colonoscope was placed in position. The entire colon was evaluated. The colonoscope was carefully removed and the patient was transferred to recovery in stable condition. Please see findings and specimens below for detail. Findings:: Bowel preparation moderate Profound lack of relaxation/spasticity Moderate tortuosity Somewhat enlarged and mildly firm prostate Complex polyps (see specimens) Specimens:: Partially pedunculated complex lobulated right colon polyp (hot snare and tattoo) Complex pedunculated complex polyp at 10 cm (hot snare) Recommendations:: Timing of repeat colonoscopy is pending pathology but likely between 3-6 months for need for close reevaluation (particularly area in and around right colonic tattoo) Continue preoperative transplant evaluation as scheduled Evaluation with regard to somewhat enlarged and somewhat firm prostate as per primary care provider and preoperative transplant service Complications:: No immediate Estimated blood obtained (mL): 1
== END 2022-08-26 15:00 | disposition home or self-care (01) ==
PROVIDERS: PCP Family Medicine; Visit Provider Surgery
PROC: 0DJD8ZZ Inspection of Lower Intestinal Tract, Via Natural or Artificial Opening Endoscopic (ICD-10-PCS; CPT 45385; principal; 2022-08-26 13:30)
DX: Z12.11 Encounter for screening for malignant neoplasm of colon (principal); K63.5 Polyp of colon
CPT/HCPCS: 45385; 82962

== ENCOUNTER 2023-01-06 06:28 | Day surgery (SDC) | payer OTHER, SELFPAY ==
[2023-01-02 09:36] VITALS: BMI 25.5
[2023-01-06 06:50] VITALS: BP 93/56; PULSE 80; RESP 18; TEMP 36.3; O2SAT 97
[2023-01-06 07:04] LABS: POC Glucose,Bedside 90 (70-110)
--- NOTE | 2023-01-06 07:10 | P.PN_ITS ---
[facility] Disclaimer: The information contained in this section may have been updated after the patient was seen, as this information can be updated by other users. Medical History Allergies CAD (coronary artery disease) Cholecystectomy planned Depression Diabetes Diabetes mellitus, type 2 Dialysis patient Edema Glaucoma Heart attack History of cataract History of COVID-19 History of gastroesophageal reflux (GERD) Hyperlipidemia Hypertension Skin cancer Stroke Surgical History H/O rotator cuff surgery LEFT History of coronary artery stent placement HEART STENT X2 History of laparoscopic cholecystectomy Family History Other No significant family history Social History Smoking Status: Former smoker years smoked: 15 how long ago did patient quit smokin second hand exposure: No alcohol intake: never substance use type: denies use current occupational status: disabled Travel in the last 8 weeks: None household members: significant other housing: house current occupational exposures/hazards: Yes [facility] Anesthesia Checklist Patient Identification Patient Identification: Arm Band and Family Structural Data Admitted From: Home Planned Operative Procedure/s: Colonoscopy Consent for Planned Operative Procedure(s) Verified: Yes Verified Documents: Surgical Consent and History and Physical NPO Status Verified Time NPO: 00:00 Additional verifications Patient : No Anesthesia Reactions: No Blood Transfusion Reaction: No Cephalosporin Allergy: No Airway Assessment C-Spine Mobility Assessed: Yes TMJ Mobility Assessed: Yes Dentition: Good Dentition Neurological Assessment Level of Consciousness: Awake, Appropriate and Follows Commands Hx Seizures: No Anesthesia Plan Anesthesia Risk discussed: Yes ASA Class: III Anesthesia Type: MAC Preoperative Comments Pre-Operative Comments: Peritoneal Dialysis, HTN, IDDM, CARDIAC STENTS
[2023-01-06 07:18] VITALS: O2SAT 97
[2023-01-06 08:03] VITALS: BP 87/53; PULSE 82; RESP 14; TEMP 36.2; O2SAT 95
--- NOTE | 2023-01-06 08:06 | HMH.SCOPE ---
Procedure: Date: 01/06/23 Patient Date of :: 1965 Procedure Performed:: Colonoscopy with polypectomy Indications:: History of colon polyps Colonoscopy in July 2022 was significant for moderate bowel preparation, poor relaxation, and moderate tortuosity. He did have a somewhat large/firm prostate with no focal mass defect. A large right colonic polyp was excised by way of snare and the area was tattooed. A polyp at 10 cm was also excised. Performing Provider:: Brett Yusuf MD Referring Provider:: . Sedation:: Monitored anesthesia care Procedure:: After informed consent was obtained the patient was taken to the endoscopy suite. Sedation ensued after the patient was transferred to the left lateral decubitus position. Pulse, blood pressure, and oxygen saturation were monitored throughout the procedure. Digital rectal exam revealed no significant abnormality. The colonoscope was placed in position. The entire colon was evaluated. The colonoscope was carefully removed and the patient was transferred to recovery in stable condition. Please see findings and specimens below for detail. Findings:: Bowel preparation moderate Persistent lack of relaxation/tortuosity Unchanged somewhat enlarged/firm prostate with no focal mass lesion Adjacent periappendiceal polyps Tattoo site appeared normal Specimens:: Adjacent periappendiceal polyps (cold snare) Recommendations:: Timing of repeat colonoscopy is pending pathology but likely be around 2 years secondary to persistent limited bowel preparation, spasticity, and tortuosity. Complications:: No immediate Estimated blood obtained (mL): 1
[2023-01-06 08:13] VITALS: BP 89/52; PULSE 82; RESP 16; O2SAT 95
[2023-01-06 08:23] VITALS: BP 96/60; PULSE 81; RESP 16; O2SAT 95
[2023-01-06 08:40] VITALS: BP 112/68; PULSE 84; RESP 16; O2SAT 97
== END 2023-01-06 08:40 | disposition home or self-care (01) ==
PROVIDERS: PCP Family Medicine; Visit Provider Surgery
PROC: 0DJD8ZZ Inspection of Lower Intestinal Tract, Via Natural or Artificial Opening Endoscopic (ICD-10-PCS; CPT 45385; principal; 2023-01-06 07:30)
DX: Z12.11 Encounter for screening for malignant neoplasm of colon (principal); D12.0 Benign neoplasm of cecum; Z86.010 Personal history of colon polyps; E11.9 Type 2 diabetes mellitus without complications; Z79.899 Other long term (current) drug therapy
CPT/HCPCS: 45385; 82962

== ENCOUNTER → 2023-03-10 09:00 | Outpatient (CLI) | payer OTHER, SELFPAY ==
[2023-03-10 11:04] LABS: Alanine Aminotransferase 55 U/L (12-78); Albumin Level 3.7 g/dl (3.5-5.0); Alkaline Phosphatase 70 U/L (38-126); Aspartate Amino Transferase 44 U/L (17-59); Bilirubin,Direct 0.1 mg/dl (0.0-0.4); Bilirubin,Indirect 0.7 mg/dL (0.0-0.9); Bilirubin,Total 0.8 mg/dl (0.2-1.3); Bilirubin,Unconjugated 0.6 mg/dL (0.0-1.1); Chol/HDL Ratio 3.5 (1-3.5); Cholesterol 97 mg/dl (140-200); HDL Cholesterol 28 mg/dl (40-60); Total Protein,Serum 5.9 g/dl (6.3-8.2); Triglycerides 119 mg/dl (30-150); VLDL Cholesterol 24 mg/dL (0-40)
[2023-03-10 11:16] LABS: Direct LDL Cholesterol 43.27 mg/dL (100-129)
== END ==
PROVIDERS: PCP Family Medicine; Visit Provider Nurse Practitioner Family
DX: E78.2 Mixed hyperlipidemia (principal); I10 Essential (primary) hypertension; I25.10 Atherosclerotic heart disease of native coronary artery without angina pectoris; I51.89 Other ill-defined heart diseases
CPT/HCPCS: 36415; 80061; 80076

== ENCOUNTER → 2023-03-24 09:21 | Outpatient (CLI) | payer OTHER, SELFPAY ==
--- NOTE | 2023-03-24 09:26 | US_ITS ---
FINAL REPORT CLINICAL HISTORY: CLAUDICATION,DM,HTN,HLD,PT ON PERITONEAL DIALYSIS FINDINGS: BILATERAL ANKLE BRACHIAL INDICES Pressure indices are as follows are: RIGHT LOWER EXTREMITY Ankle brachial pressure index: 0.71 Toe brachial pressure index: Noncompressible COMMENTS: Mild peripheral arterial disease. LEFT LOWER EXTREMITY Ankle brachial pressure index: Noncompressible Toe brachial pressure index: Noncompressible COMMENTS: Invalid. Vessels are noncompressible IMPRESSION: Mild peripheral arterial disease in the right lower extremity. Exam invalid in the left lower extremity. If indicated, CTA may be helpful. Reviewed, Interpreted and Dictated by Lazaro Ernst III, MD Transcribed by Betty Gupta Authenticated and [facility]
== END ==
PROVIDERS: PCP Family Medicine; Visit Provider Podiatrist
DX: I70.213 Atherosclerosis of native arteries of extremities with intermittent claudication, bilateral legs (principal)
CPT/HCPCS: 93923

== ENCOUNTER 2023-03-26 10:21 | Emergency (ER) | payer OTHER, SELFPAY ==
[2023-03-26 10:21] VITALS: BP 158/72; PULSE 92; RESP 18; TEMP 36.7; O2SAT 99; BMI 27.4
[2023-03-26 10:27] VITALS: BP 158/77; PULSE 89; O2SAT 99
[2023-03-26 10:30] VITALS: BP 154/92; PULSE 90; O2SAT 100
--- NOTE | 2023-03-26 10:38 | HMH.EDGENADL ---
Discharge Plan Disposition Patient Disposition: Home, Self-Care Prescriptions Prescriptions: No Action Velphoro 500 mg tablet,chewable 500 mg PO TID minoxidil 2.5 mg tablet 2.5 mg PO BID Qty: 180 3RF metoprolol succinate 100 mg tablet extended release 24 hr 100 mg PO BID bumetanide 1 mg tablet 1 mg PO DAILY Label Comments: TAKE 1 TABLET BY MOUTH ONCE DAILY sildenafil 100 mg tablet 100 mg PO DAILY PRN (Reason: sexual activity) Qty: 10 10RF Rx Instructions: administer 30 minutes to 4 hours before activity atorvastatin 80 mg tablet 80 mg PO DAILY Qty: 90 3RF pantoprazole [Protonix] 40 mg tablet,delayed release (DR/EC) 40 mg PO DAILY Qty: 90 3RF zolpidem [Ambien] 10 mg tablet 10 mg PO HS PRN (Reason: insomnia) Qty: 30 3RF calcitriol 0.25 mcg capsule 0.5 mcg PO DAILY Label Comments: TAKE 2 CAPSULES BY MOUTH ONCE A DAY amoxicillin 500 mg tablet 500 mg PO TID 10 Days Qty: 30 0RF insulin glargine [Lantus Solostar U-100 Insulin] 100 unit/mL (3 mL) insulin pen 22 unit SQ HS Qty: 15 12RF RenaPlex-D 800 mcg-12.5 mg -2,000 unit Tablet 1 tab PO DAILY clonidine HCl 0.1 mg tablet 0.2 mg PO Q8H sodium bicarbonate 650 mg tablet 650 mg PO TID fluoxetine 20 mg capsule 20 mg PO DAILY (DME) pen needle, diabetic [Lite Touch Insulin Pen [place]] 31 gauge x 1/4 needle See Rx Instructions MISCELLANEOUS Rx Instructions: As directed cilostazol 100 mg tablet 100 mg PO BID aspirin 81 mg tablet,delayed release (DR/EC) See Rx Instructions .ROUTE .COMPLEX Rx Instructions: Take 1 tablet by mouth once daily Referrals Follow up/Referrals: Guanako Zimmerman MD [Primary Care Provider] - See instructions Clinical Impressions Clinical Impression: Ear foreign body Discharge ED Provider: Virginie Chino General Adult HPI General Chief complaint: Ear Stated complaint: Possible foreign object in RT ear Time Seen by Provider: 03/26/23 10:40 Mode of Arrival: Ambulatory Limitations: No Limitations Description of Symptoms (Recalled from ER Triage Doc. by RN): PT REPORTS RIGHT EAR PAIN, CLEANING EARS LAST NIGHT, COULD POSSIBLY HAVE FOREIGN BODY FROM EAR CLEANING KIT History of Present Illness HPI narrative: 57-year-old male presenting with foreign body in the right ear. States that he was using a commercially available product to clean his ear out and a silicone tube came broken and dislodged into his right ear no significant pain fevers chills discharge etc. No other symptoms or concerns today. Related Data Home Medications Medication Instructions Recorded Confirmed sucroferric oxyhydroxide 500 mg 500 mg PO TID ckd 03/06/22 03/12/23 chewable tablet (Velphoro) clonidine HCl 0.1 mg tablet 0.2 mg PO Q8H High blood pressure 08/26/22 03/12/23 fluoxetine 20 mg capsule 20 mg PO DAILY Depression 08/26/22 03/12/23 pen needle, diabetic 31 gauge x 08/26/22 03/12/2312/03 (Lite Touch Insulin Pen [place]) sodium bicarbonate 650 mg tablet 650 mg PO TID High blood pressure 08/26/22 03/12/23 vit B,C-folic ac 800 mcg-zinc 12.5 1 tab PO DAILY Supplement 08/26/22 03/12/23 mg-selen-D3 2,000 unit-vit E tablet (RenaPlex-D) aspirin 81 mg tablet,delayed See Rx Instructions .Route 01/02/23 03/12/23 release .COMPLEX Blood thinner cilostazol 100 mg tablet 100 mg PO BID CAD 01/02/23 03/12/23 bumetanide 1 mg tablet 1 mg PO DAILY 03/10/23 03/12/23 metoprolol succinate 100 mg 100 mg PO BID 03/10/23 03/12/23 tablet,extended release 24 hr calcitriol 0.25 mcg capsule 0.5 mcg PO DAILY 03/12/23 03/12/23 Previous Rx's Medication Instructions Recorded minoxidil 2.5 mg tablet 2.5 mg PO BID High blood pressure 09/09/22 #180 tabs atorvastatin 80 mg tablet 80 mg PO DAILY Cholesterol #90 tabs 11/10/22 pantoprazole 40 mg tablet,delayed 40 mg PO DAILY GERD #90 tabs 11/10/22 release (Protonix) sildenafil 100 mg tablet 10
--- NOTE | 2023-03-26 10:43 | PC.NURSE ---
DR BHAT AT BEDSIDE
[2023-03-26 11:01] VITALS: BP 166/94; PULSE 68; RESP 16; TEMP 36.6; O2SAT 97
== END 2023-03-26 10:50 | disposition home or self-care (01) ==
PROVIDERS: Emergency Provider Student in an Organized Health Care Education/Training Program; PCP Family Medicine
DX: T16.1XXA Foreign body in right ear, initial encounter (principal); Z87.891 Personal history of nicotine dependence
CPT/HCPCS: 69200; 99282; 99283

== ENCOUNTER → 2023-04-30 07:52 | Day surgery (SDC) | payer OTHER, SELFPAY ==
[2023-04-30] VITALS (40 sets, daily range): BP systolic 111–184; BP diastolic 50–88; PULSE 85–100; RESP 16–20; TEMP 36.3–37.1; O2SAT 90–100; BMI 27.2
--- NOTE | 2023-04-30 07:16 | IR_ITS ---
APPROVED REPORT Patient Location: Outpatient PROCEDURES Catheter placement in the abdominal aorta Abdominal aortography Repositioning of the catheter in the abdominal aorta Bilateral iliofemoral runoff Catheter placement in the left SFA Left SFA selective angiogram Intravascular lithotripsy to the left popliteal artery Drug-coated balloon angioplasty to the left popliteal artery and left superficial femoral artery INDICATION Peripheral artery disease, [place] claudication class III, Calcification of the left popliteal artery, Abnormal PAMELA Informed consent was obtained prior to the procedure. COMPLICATIONS None Estimated Blood Loss: Less than 10 ML TECHNIQUE 1% lidocaine used anesthetize the right groin the right femoral nerves accessed via the center technique and a 4 Hebrew sheath was placed in the right femoral artery. The pigtail catheter was advanced to the abdominal aorta where abdominal aortography was performed. The catheter was then repositioned and bilateral iliofemoral feels performed. Following this therapeutic heparin was administered and the 4 Hebrew sheath was exchanged for a long 6 Hebrew destination sheath. A rim catheter was advanced to the distal abdominal aorta and an advantage wire was then used to cannulate the left common iliac artery and the wire was placed into the left SFA. The sheath rim catheter were then advanced over the wire with the distal portion ending in the left proximal SFA. A 300 cm Choice PT extra-support wire was placed distally into the popliteal artery and a 5 mm x 60 mm shockwave intravascular lithotripsy balloon was deployed for 300 pulsations between 4 5 and 6 ravin. Following this a 5 mm x 200 mm drug-coated balloon was then deployed in the mid SFA extending throughout the popliteal artery and deployed at 12 ravin. After 3 minutes the balloon was deflated and post procedure angiography demonstrated wide patency of the left SFA and left popliteal artery. At the end of procedure the apparatus was removed the sheath was sewn into place patient was transferred the postop putting in stable condition ANGIOGRAPHIC RESULTS Infrarenal abdominal aorta is patent however it is calcified with distal 30% stenosis Bilateral common and external iliac arteries are widely patent. The bilateral internal iliac arteries are patent however the right internal iliac artery has proximal 90% stenoses Right common femoral artery has a mid vessel calcified 50% stenosis while the left common femoral artery is widely patent Bilateral profunda femoris arteries are patent Right superficial femoral artery is patent with 40 to 50% calcified mid vessel stenoses. The popliteal artery has a long proximal 70% stenosis with a mid vessel 90% stenosis at the patellar junction. The right anterior tibialis artery is patent in the proximal portion and then subtotally occludes in the midportion while the peroneal and posterior tibialis arteries are occluded. The anterior tibialis artery appears to reconstitute distally and supplies collateral flow into the right foot Left superficial femoral artery is patent in the proximal segment with a mid vessel calcified 50% stenosis. There is an additional 70 to 80% stenosis at Fredy's canal while the left popliteal artery has a mid vessel concentric 90% calcified stenosis. The anterior tibialis artery is patent in the proximal segment but occludes at mid vessel and then reconstitutes. The peroneal artery is patent in the proximal third portion of the calf and then occludes while the left posterior tibialis artery is proximally occluded throughout IMPRESSION Peripheral artery disease as described above Successful intravascular lithotripsy of t
[2023-04-30 09:19] LABS: Basophils # 0.1 K/mm3 (0-0.2); Basophils % 0.5 % (0.1-2.0); Eosinophils # 0.9 K/mm3 (0.0-0.4); Eosinophils % 9.4 % (0.1-12.0); Hemoglobin 10.6 g/dL (14.1-18.0); Lymphocytes # 1.7 K/mm3 (0.7-4.5); Lymphocytes % 16.8 % (10-50); Mean Corpuscular Hemoglobin 27.6 pg (27.0-31.2); Mean Corpuscular Volume 86.4 fl (80-94); Mean Platelet Volume 7.8 fl (7.4-10.4); Monocytes # 0.6 K/mm3 (0.1-1.0); Monocytes % 6.2 % (1.7-9.3); Neutrophils # 6.6 K/mm3 (1.8-7.8); Neutrophils % 67.1 % (37.0-80.0); Platelet Count 325 K/mm3 (142-424); Red Blood Count 3.82 M/mm3 (4.60-6.20); Red Cell Distribution Width 15.6 % (11.5-17.5); White Blood Count 9.8 K/mm3 (4.8-10.8)
[2023-04-30 09:23] LABS: Chloride 95 mmol/L (98-107); Sodium 140 mmol/L (136-145)
[2023-04-30 09:26] LABS: Blood Urea Nitrogen 55 mg/dl (9-20); Carbon Dioxide 31 mmol/L (22.0-30.0); Creatinine Clearance Estimated 8 mL/min (50-200); Estimated Glomerular Filt Rate 6 ml/min (>60); GFR (African American) 7 ML/MIN (>60)
[2023-04-30 09:27] LABS: Calcium 8.5 mg/dl (8.4-10.2); Glucose 89 mg/dl (74-100)
[2023-04-30 11:38] LABS: CATHL Activated Clotting Time 241 SEC (74-125)
--- NOTE | 2023-04-30 14:08 | SUR.PHASEII ---
Report called to Venus CARTER on medr floor, patient to stay until hemostasis acheived at right groin site.
[2023-04-30 14:22] LABS: POC Glucose,Bedside 65 (70-110)
--- NOTE | 2023-04-30 17:16 | PC.NURSE ---
100 ml continent clear yellow urine via urinal
--- NOTE | 2023-04-30 17:27 | PC.NURSE ---
Pt alert and oriented. VSS. Right groin site D&I. Voiding per urinal. Denies pain. Tolerating oral intake. Patient continues to lay flat per orders
== END | disposition home or self-care (01) ==
PROVIDERS: PCP Family Medicine; Visit Provider Internal Medicine
DX: I25.10 Atherosclerotic heart disease of native coronary artery without angina pectoris (principal); E11.59 Type 2 diabetes mellitus with other circulatory complications; E78.2 Mixed hyperlipidemia; I13.0 Hypertensive heart and chronic kidney disease with heart failure and stage 1 through stage 4 chronic kidney disease, or unspecified chronic kidney disease; I50.9 Heart failure, unspecified; N18.6 End stage renal disease; Z79.4 Long term (current) use of insulin; Z87.891 Personal history of nicotine dependence; Z86.16 Personal history of COVID-19; I70.212 Atherosclerosis of native arteries of extremities with intermittent claudication, left leg; I77.1 Stricture of artery
CPT/HCPCS: 37226; 80048; 82962; 85025; 85347; 99152; 99153; C1725; C1766; C1769; J1644; Q9966

== ENCOUNTER 2023-05-26 08:52 | Day surgery (SDC) | payer OTHER, SELFPAY ==
[2023-05-26] VITALS (16 sets, daily range): BP systolic 81–191; BP diastolic 32–100; PULSE 66–79; RESP 18–19; O2SAT 92–99; BMI 29.2
--- NOTE | 2023-05-26 07:10 | IR_ITS ---
APPROVED REPORT Patient Location: Outpatient PROCEDURES Catheter placement in the right superficial femoral artery Right superficial femoral artery antegrade angiogram Intravascular lithotripsy to the right popliteal artery and right superficial femoral artery Drug-coated balloon angioplasty to the right popliteal artery and right superficial femoral artery INDICATION [place] claudication class III, Calcification with peripheral artery disease involving the right popliteal artery and right superficial femoral artery Informed consent was obtained prior to the procedure. COMPLICATIONS None Estimated Blood Loss: Less than 10 ML TECHNIQUE 1% lidocaine used anesthetize the left groin and the left pulmonary was accessed via the [place] technique a 6 [place]vor[place] sheath was placed in the femoral artery. Using a rim catheter catheter was used to intubate the right common iliac artery where an advantage wire was placed distally into the right SFA. The 6 [place]vorian sheath was exchanged for a 45 cm destination sheath. Therapeutic heparin was administered giving a therapeutic ACT and a Choice PT extra-support wire was placed distally into the anterior tibialis artery. A 4.5 x 60 mm shockwave balloon was deployed at 468 and 10 ravin in both the popliteal artery and the superficial femoral artery using all 300 impulses. Following this a 5 mm x 200 mm drug-coated balloon was deployed at 8 ravin for 3 minutes further treating and reducing the stenosis. Excellent angiograph results were obtained. At the end of procedure the apparatus was removed the groin is reprepped closure change sheath was removed and hemostasis was achieved using Perclose device patient was transferred to the postop putting in stable condition ANGIOGRAPHIC RESULTS Right superficial femoral arteries proximally calcified with 30 and 40% stenoses. There is a focal 80% calcified stenosis at Fredy's canal Right popliteal artery has diffuse 30 and 40% stenoses with a focal 80 to 90% calcified stenosis at the infrageniculate level just proximal to the PT trunk IMPRESSION Severe disease as described above Successful intravascular lithotripsy to the right popliteal artery and right superficial femoral artery followed by drug-coated balloon angioplasty. PLAN 1. Dual antiplatelet therapy 2. Avoidance of tobacco products 3. Risk factor modification 4. LDL less than 55 to be achieved with high intensity statin Electronically signed by : Gal Waller MD 05/26/2023 14:39:43
[2023-05-26 09:33] LABS: Basophils # 0.1 K/mm3 (0-0.2); Basophils % 0.7 % (0.1-2.0); Eosinophils # 0.8 K/mm3 (0.0-0.4); Eosinophils % 6.2 % (0.1-12.0); Hematocrit 32.5 % (42.0-52.0); Hemoglobin 10.5 g/dL (14.1-18.0); Lymphocytes # 2.1 K/mm3 (0.7-4.5); Lymphocytes % 16.2 % (10-50); Mean Corpuscular HGB Conc 32.4 g/dL (31.8-35.4); Mean Corpuscular Hemoglobin 28.5 pg (27.0-31.2); Mean Corpuscular Volume 87.8 fl (80-94); Mean Platelet Volume 8.2 fl (7.4-10.4); Monocytes # 0.7 K/mm3 (0.1-1.0); Monocytes % 5.2 % (1.7-9.3); Neutrophils # 9.3 K/mm3 (1.8-7.8); Neutrophils % 71.7 % (37.0-80.0); Platelet Count 301 K/mm3 (142-424); Red Cell Distribution Width 17.8 % (11.5-17.5)
[2023-05-26 09:43] LABS: Chloride 94 mmol/L (98-107); Potassium 4.2 mmoL/L (3.5-5.1); Sodium 138 mmol/L (136-145)
[2023-05-26 09:44] LABS: INR 1.03 (0.9-1.1); Prothrombin Time 11.1 seconds (10.1-12.5)
[2023-05-26 09:46] LABS: Anion Gap 19.2 mEq/L (5-15); Blood Urea Nitrogen 68 mg/dl (9-20); Calcium 8.7 mg/dl (8.4-10.2); Carbon Dioxide 29 mmol/L (22.0-30.0); Creatinine Clearance Estimated 8 mL/min (50-200); Estimated Glomerular Filt Rate 5 ml/min (>60); GFR (African American) 7 ML/MIN (>60); Glucose 167 mg/dl (74-100)
[2023-05-26 14:55] LABS: CATHL Activated Clotting Time 323 SEC (74-125)
--- NOTE | 2023-05-26 15:02 | HMH.PHACL ---
PHA Personal Financial Counselor Discharge Med Clinical Microbiologist: Ralf Chino has received discharge medication counseling on the following medications: ASPIRIN 81 MG DAILY ATORVASTATIN 80 MG HS CLOPIDOGREL 75 MG DAILY
== END 2023-05-26 16:15 | disposition home or self-care (01) ==
PROVIDERS: PCP Family Medicine; Visit Provider Internal Medicine
DX: R94.39 Abnormal result of other cardiovascular function study (principal); I70.211 Atherosclerosis of native arteries of extremities with intermittent claudication, right leg; Z79.4 Long term (current) use of insulin; Z79.899 Other long term (current) drug therapy; Z86.16 Personal history of COVID-19; I77.1 Stricture of artery; E11.22 Type 2 diabetes mellitus with diabetic chronic kidney disease; I25.10 Atherosclerotic heart disease of native coronary artery without angina pectoris; Z79.01 Long term (current) use of anticoagulants; I13.0 Hypertensive heart and chronic kidney disease with heart failure and stage 1 through stage 4 chronic kidney disease, or unspecified chronic kidney disease; N18.6 End stage renal disease; I70.92 Chronic total occlusion of artery of the extremities; Z95.5 Presence of coronary angioplasty implant and graft; Z99.2 Dependence on renal dialysis
CPT/HCPCS: 37224; 80048; 85025; 85347; 85610; 99152; 99153; C1725; C1760; C1766; C1769; C1894; J1644; Q9966; Q9967

== ENCOUNTER → 2023-06-05 15:21 | Outpatient (CLI) | payer OTHER, SELFPAY | PROVIDERS: PCP Family Medicine; Visit Provider Family Medicine | DX: H61.20 Impacted cerumen, unspecified ear (principal) | CPT/HCPCS: 87070; 87077; 87186 ==

== ENCOUNTER → 2023-07-06 13:28 | Outpatient (CLI) | payer OTHER, SELFPAY ==
[2023-07-06 13:33] LABS: MANUAL DIFFERENTIAL MANUAL DIFFERENTIAL (MANUAL DIFF)
[2023-07-06 14:38] LABS: Basophils # 0.1 K/mm3 (0-0.2); Basophils % 0.6 % (0.1-2.0); Eosinophils # 0.5 K/mm3 (0.0-0.4); Eosinophils % 3.4 % (0.1-12.0); Hematocrit 41.6 % (42.0-52.0); Hemoglobin 13.1 g/dL (14.1-18.0); Lymphocytes % 20.5 % (10-50); Mean Corpuscular HGB Conc 31.4 g/dL (31.8-35.4); Mean Corpuscular Volume 89.1 fl (80-94); Mean Platelet Volume 7.7 fl (7.4-10.4); Monocytes # 0.8 K/mm3 (0.1-1.0); Monocytes % 5.8 % (1.7-9.3); Neutrophils # 10.1 K/mm3 (1.8-7.8); Neutrophils % 69.7 % (37.0-80.0); Platelet Count 394 K/mm3 (142-424); Red Blood Count 4.67 M/mm3 (4.60-6.20); Red Cell Distribution Width 18.3 % (11.5-17.5); White Blood Count 14.4 K/mm3 (4.8-10.8)
[2023-07-06 15:05] LABS: Eosinophils % 2 % (0-3); Lymphocytes % 27 % (10-50); Monocytes % 3 % (2-9); Neutrophils % 68 % (42-76); Platelet Estimate Normal; RBC Morphology Normal; Total Cells Counted 100
[2023-07-11 00:09] LABS: D001-IgE D pteronyssinus <0.10 kU/L (Class 0); D002-IgE D farinae <0.10 kU/L (Class 0); E001-IgE Cat Dander <0.10 kU/L (Class 0); E005-IgE Dog Dander <0.10 kU/L (Class 0); E072-IgE Mouse Urine <0.10 kU/L (Class 0); G002-IgE Bermuda Grass <0.10 kU/L (Class 0); G006-IgE Timothy Grass <0.10 kU/L (Class 0); I006-IgE Cockroach, German <0.10 kU/L (Class 0); Immunoglobulin E, Total 4 IU/mL (6-495); M001-IgE Penicillium chrysogen <0.10 kU/L (Class 0); M002-IgE Cladosporium herbarum <0.10 kU/L (Class 0); M003-IgE Aspergillus fumigatus <0.10 kU/L (Class 0); M006-IgE Alternaria alternata <0.10 kU/L (Class 0); T001-IgE Maple/Box Elder <0.10 kU/L (Class 0); T006-IgE Cedar, Mountain <0.10 kU/L (Class 0); T007-IgE Oak, White <0.10 kU/L (Class 0); T008-IgE Elm, American <0.10 kU/L (Class 0); T010-IgE Walnut <0.10 kU/L (Class 0); T011-IgE Maple Leaf Sycamore <0.10 kU/L (Class 0); T014-IgE Cottonwood <0.10 kU/L (Class 0); T015-IgE Ash, White <0.10 kU/L (Class 0); T022-IgE Pecan, Hickory <0.10 kU/L (Class 0); T070-IgE White Mulberry <0.10 kU/L (Class 0); W001-IgE Ragweed, Short <0.10 kU/L (Class 0); W011-IgE Thistle, Russian <0.10 kU/L (Class 0); W014-IgE Pigweed, Common <0.10 kU/L (Class 0); W016-IgE Rough Marshelder <0.10 kU/L (Class 0)
== END ==
PROVIDERS: PCP Family Medicine; Visit Provider Nurse Practitioner
DX: H60.92 Unspecified otitis externa, left ear (principal); J32.0 Chronic maxillary sinusitis
CPT/HCPCS: 36415; 82785; 85007; 85014; 85018; 85048; 85049; 86003

== ENCOUNTER 2023-07-06 13:49 | Emergency (ER) | payer OTHER, SELFPAY ==
[2023-07-06 13:51] VITALS: BP 132/45; PULSE 105; RESP 20; TEMP 36.8; O2SAT 100; BMI 26.5
[2023-07-06 13:56] VITALS: BP 132/45; PULSE 106; O2SAT 97
--- NOTE | 2023-07-06 14:07 | HMH.EDGENADL ---
Discharge Plan Disposition Patient Disposition: Home, Self-Care Prescriptions Prescriptions: New lptkjisf-kjadxwaaq-UA 3.5-10,000-1 mg/mL-unit/mL-% solution 4 drp otic (ear) Q6H 10 Days Qty: 10 0RF doxycycline hyclate 100 mg capsule 100 mg PO BID 14 Days Qty: 28 0RF mupirocin 2 % ointment 1 applic topical BID 5 Days Qty: 22 0RF No Action minoxidil 2.5 mg tablet 2.5 mg PO BID Qty: 180 3RF sodium bicarbonate 650 mg tablet 650 mg PO TID Qty: 60 0RF Xarelto 2.5 mg tablet 2.5 mg PO BID Qty: 60 11RF sildenafil 100 mg tablet 100 mg PO DAILY PRN (Reason: sexual activity) Qty: 10 10RF Rx Instructions: administer 30 minutes to 4 hours before activity atorvastatin 80 mg tablet 80 mg PO DAILY Qty: 90 3RF pantoprazole [Protonix] 40 mg tablet,delayed release (DR/EC) 40 mg PO DAILY Qty: 90 3RF calcitriol 0.25 mcg capsule 0.5 mcg PO DAILY Patient Comments: TAKE 2 CAPSULES BY MOUTH ONCE A DAY zolpidem [Ambien] 10 mg tablet 10 mg PO HS PRN (Reason: sleep) Qty: 30 5RF fluoxetine 20 mg capsule 20 mg PO DAILY Qty: 90 3RF clindamycin HCl 300 mg capsule 300 mg PO Q8H Qty: 30 1RF mupirocin 2 % ointment 1 applic topical TID Qty: 22 3RF amitriptyline 25 mg tablet 25 mg PO HS Qty: 30 2RF azelastine 137 mcg (0.1 %) aerosol,spray 2 spray intranasal BID Qty: 30 2RF Rx Instructions: administer into each nostril levocetirizine [Xyzal] 5 mg tablet 5 mg PO HS Qty: 30 2RF ciprofloxacin HCl 0.3 % drops See Rx Instructions ophthalmic (eye) .COMPLEX Qty: 10 3RF Rx Instructions: 4 drops into affected EAR 4x/day gentamicin 0.3 % drops 4 drp Ear-Left QID Qty: 10 5RF insulin glargine [Lantus Solostar U-100 Insulin] 100 unit/mL (3 mL) insulin pen 24 unit SQ HS Qty: 15 12RF RenaPlex-D 800 mcg-12.5 mg -2,000 unit Tablet 1 tab PO DAILY clonidine HCl 0.1 mg tablet 0.2 mg PO Q8H (DME) pen needle, diabetic [Lite Touch Insulin Pen [place]] 31 gauge x 1/4 needle See Rx Instructions MISCELLANEOUS Rx Instructions: As directed cilostazol 100 mg tablet 100 mg PO BID aspirin 81 mg tablet,delayed release (DR/EC) See Rx Instructions .ROUTE .COMPLEX Rx Instructions: Take 1 tablet by mouth once daily Referrals Follow up/Referrals: Guanako Zimmerman MD [Primary Care Provider] - See instructions Activity Restrictions/Add. Instructions Additional Instructions/Restrictions: Doxycycline twice daily for full 14 days. Mupirocin in each nostril twice daily, as per protocol. Chlorhexidine can be picked up [id number] (also called Hibiclens), use this per protocol provided as well. Use eardrops 4 times daily for 10 days for ear infection. Call your family doctor to establish care for this visit to the emergency department and schedule follow-up within 48 hours to ensure improvement. If you have any worsening of your condition or any other concerning signs or symptoms, return to the emergency department or your primary care doctor for further evaluation. You will be contacted if blood cultures return positive to return to the emergency department. Clinical Impressions Clinical Impression: Furuncle of extremity, Abscess Instructions Patient Instructions: DI for Skin Abscess Discharge ED Provider: Tony Pandey General Adult HPI General Chief complaint: Skin/Abscess/Foreign Body Stated complaint: bilateral leg and rt middle finger drainage Time Seen by Provider: 07/06/23 13:52 History of Present Illness HPI narrative: Is a 58-year-old male with history of hypertension, hyperlipidemia, type 2 diabetes, kidney failure currently on dialysis, CHF presenting with multiple abscesses. Patient states that he was on a 40-day course of clindamycin, which ended about 3 days prior to arrival. Since that time, he has had multiple spots pop up on his legs and chest. They drain purulent fluid a
--- NOTE | 2023-07-06 14:18 | PC.NURSE ---
contacted lab about blood culture order.
[2023-07-06 14:27] VITALS: BP 130/50; PULSE 98; RESP 19; TEMP 36.7; O2SAT 99
== END 2023-07-06 14:46 | disposition home or self-care (01) ==
PROVIDERS: Emergency Provider Emergency Medicine; PCP Family Medicine
DX: L02.511 Cutaneous abscess of right hand (principal); L02.419 Cutaneous abscess of limb, unspecified; I13.2 Hypertensive heart and chronic kidney disease with heart failure and with stage 5 chronic kidney disease, or end stage renal disease; I50.9 Heart failure, unspecified; N18.6 End stage renal disease; E11.22 Type 2 diabetes mellitus with diabetic chronic kidney disease; E78.5 Hyperlipidemia, unspecified; I25.10 Atherosclerotic heart disease of native coronary artery without angina pectoris; F32.A Depression, unspecified; H62.40 Otitis externa in other diseases classified elsewhere, unspecified ear
CPT/HCPCS: 87040; 99283

== ENCOUNTER 2023-07-20 12:24 | Observation (INO) | payer OTHER, SELFPAY ==
[2023-07-20] VITALS (8 sets, daily range): BP systolic 115–146; BP diastolic 44–101; PULSE 60–91; RESP 16–18; TEMP 36.6–36.7; O2SAT 92–100; BMI 25.9
--- NOTE | 2023-07-20 12:53 | PC.NURSE ---
checked on pt in lobby, advised him we would get him in a room as soon as possible
--- NOTE | 2023-07-20 13:51 | CA_ITS ---
FINAL REPORT CLINICAL HISTORY: necrotic wounds, concern for ischemia,PRIOR STENTS [facility] COMPARISON: 03/24/2023 FINDINGS: BILATERAL LOWER EXTREMITY DUPLEX DOPPLER Color Doppler and duplex Doppler of the bilateral lower extremity was performed. Spectral analysis was also performed. Velocities were measured at multiple levels. All velocities are in centimeters per second. RIGHT BOBBIN COIL WINDER: 161 Prof: 87 SFA Prox: 102 SFA Mid: 114 SFA Distal: 89 Pop: 80 PATIENT SAFETY SITTER Prox: 75 ALISON: 28 Per Prox: 89 Waveforms are monophasic LEFT BOBBIN COIL WINDER: 164 Prof: 142 SFA Prox: 114 SFA Mid: 132 SFA Distal: 116 Pop: 87 PATIENT SAFETY SITTER Dist: 29 Per Prox: 87 Waveforms are monophasic IMPRESSION: ABIs not obtained. Waveforms are noted to be monophasic throughout. No flow detected at the right posterior tibial and left anterior tibial arteries. High likelihood of significant inflow lesion. CTA or catheter directed angiography with evaluation of the abdominal aorta and iliac vessels is recommended. Reviewed, Interpreted and Dictated by Marek Hernandez MD Transcribed by Heydi Chaves Authenticated and [facility]
--- NOTE | 2023-07-20 13:53 | PC.NURSE ---
notified vascular lab of doppler order, spoke with brenda
--- NOTE | 2023-07-20 14:40 | HMH.EDGENADL ---
Discharge Plan Disposition Patient Disposition: Admitted Prescriptions Prescriptions: No Action minoxidil 2.5 mg tablet 2.5 mg PO BID Qty: 180 3RF sodium bicarbonate 650 mg tablet 650 mg PO TID Qty: 60 0RF Xarelto 2.5 mg tablet 2.5 mg PO BID Qty: 60 11RF metoprolol succinate 100 mg tablet extended release 24 hr 100 mg PO BID Velphoro 500 mg tablet,chewable 1,000 mg PO TID Patient Comments: CRUSH OR CHEW AND SWALLOW 2 TABLETS 3 TIMES A DAY WITH MEALS sildenafil 100 mg tablet 100 mg PO DAILY PRN (Reason: sexual activity) Qty: 10 10RF Rx Instructions: administer 30 minutes to 4 hours before activity atorvastatin 80 mg tablet 80 mg PO DAILY Qty: 90 3RF pantoprazole [Protonix] 40 mg tablet,delayed release (DR/EC) 40 mg PO DAILY Qty: 90 3RF calcitriol 0.25 mcg capsule 0.5 mcg PO DAILY Patient Comments: TAKE 2 CAPSULES BY MOUTH ONCE A DAY fluoxetine 20 mg capsule 20 mg PO DAILY Qty: 90 3RF mupirocin 2 % ointment 1 applic topical TID Qty: 22 3RF amitriptyline 25 mg tablet 25 mg PO HS Qty: 30 2RF azelastine 137 mcg (0.1 %) aerosol,spray 2 spray intranasal BID Qty: 30 2RF Rx Instructions: administer into each nostril levocetirizine [Xyzal] 5 mg tablet 5 mg PO HS Qty: 30 2RF nystatin 100,000 unit/gram cream 1 applic topical TID PRN (Reason: rash) Qty: 30 0RF ciprofloxacin HCl 0.3 % drops See Rx Instructions ophthalmic (eye) .COMPLEX Qty: 10 3RF Rx Instructions: 4 drops into affected EAR 4x/day gentamicin 0.3 % drops 4 drp Ear-Left QID Qty: 10 5RF insulin glargine [Lantus Solostar U-100 Insulin] 100 unit/mL (3 mL) insulin pen 24 unit SQ HS Qty: 15 12RF RenaPlex-D 800 mcg-12.5 mg -2,000 unit Tablet 1 tab PO DAILY clonidine HCl 0.1 mg tablet 0.2 mg PO Q8H (DME) pen needle, diabetic [Lite Touch Insulin Pen [employer]] 31 gauge x 1/4 needle See Rx Instructions MISCELLANEOUS Rx Instructions: As directed cilostazol 100 mg tablet 100 mg PO BID aspirin 81 mg tablet,delayed release (DR/EC) See Rx Instructions .ROUTE .COMPLEX Rx Instructions: Take 1 tablet by mouth once daily iyktxbrm-wxcnpchvv-GT 3.5-10,000-1 mg/mL-unit/mL-% solution 4 drp otic (ear) Q6H 10 Days Qty: 10 0RF doxycycline hyclate 100 mg capsule 100 mg PO BID 14 Days Qty: 28 0RF Referrals Follow up/Referrals: Guanako Zimmerman MD [Primary Care Provider] - See instructions Activity Restrictions/Add. Instructions Additional Instructions/Restrictions: You were evaluated in the emergency department today Clinical Impressions Clinical Impression: Wound of foot, Open wound of hand, Peripheral arterial disease Instructions Patient Instructions: DI for Skin Abscess Discharge ED Provider: Jennifer Baron General Adult HPI General Chief complaint: Skin/Abscess/Foreign Body Stated complaint: lac on Right hand and bump on both legs Time Seen by Provider: 07/20/23 13:17 Mode of Arrival: Ambulatory Source of Information: Patient Limitations: No Limitations Description of Symptoms (Recalled from ER Triage Doc. by RN): pt presents to ED stating that he has a place on his right index finger and bilateral legs that have been present x 3 weeks. pt states he was discharged from [facility] recently and was instructed to f/u with dermatology. pt reports he has an appointment with dermatology tomorrow but that he is in pain. History of Present Illness HPI narrative: This patient is a 58-year-old male with a history of MRSA and recurrent abscesses, claudication, peripheral vascular disease status post stenting of the lower extremities, end-stage renal disease on peritoneal dialysis nightly, hypertension, hyperlipidemia, type 2 diabetes, CAD, and CHF presented to the emergency department for evaluation with concern for worsening lesions to his feet and hands. Patient reports he has been
--- NOTE | 2023-07-20 14:50 | PC.NURSE ---
Dr. Baron s/w Dr Waller
[2023-07-20 15:21] LABS: Basophils # 0.1 K/mm3 (0-0.2); Basophils % 0.5 % (0.1-2.0); Eosinophils # 0.3 K/mm3 (0.0-0.4); Eosinophils % 2.6 % (0.1-12.0); Hematocrit 38.6 % (42.0-52.0); Hemoglobin 12.7 g/dL (14.1-18.0); Lymphocytes % 15.6 % (10-50); Mean Corpuscular Hemoglobin 29.4 pg (27.0-31.2); Mean Platelet Volume 8.5 fl (7.4-10.4); Monocytes # 0.8 K/mm3 (0.1-1.0); Monocytes % 6.5 % (1.7-9.3); Neutrophils # 9.4 K/mm3 (1.8-7.8); Neutrophils % 74.8 % (37.0-80.0); Platelet Count 290 K/mm3 (142-424); Red Blood Count 4.33 M/mm3 (4.60-6.20); White Blood Count 12.6 K/mm3 (4.8-10.8)
--- NOTE | 2023-07-20 15:29 | PC.NURSE ---
gaston bardales from cardiology called states she will be over to see pt.
[2023-07-20 15:33] LABS: Alanine Aminotransferase 54 U/L (12-78); Albumin Level 3.7 g/dl (3.5-5.0); Albumin/Globulin Ratio 1.1 (1.1-1.8); Alkaline Phosphatase 131 U/L (38-126); Aspartate Amino Transferase 36 U/L (17-59); Bilirubin,Total 0.6 mg/dl (0.2-1.3); Blood Urea Nitrogen 65 mg/dl (9-20); Calcium 7.9 mg/dl (8.4-10.2); Carbon Dioxide 26 mmol/L (22.0-30.0); Chloride 93 mmol/L (98-107); Creatinine Clearance Estimated 7 mL/min (50-200); Estimated Glomerular Filt Rate 5 ml/min (>60); GFR (African American) 6 ML/MIN (>60); Globulin 3.4 g/dL (1.3-3.2); Glucose 149 mg/dl (74-100); Lactate Dehydrogenase 207 U/L (313-618); Sodium 136 mmol/L (136-145); Total Protein,Serum 7.1 g/dl (6.3-8.2)
[2023-07-20 15:34] LABS: Lactic Acid 0.9 mmol/L (0.7-2.1)
[2023-07-20 15:35] LABS: Activated Partial Thrombo Time 34.9 seconds (22.8-30.6); INR 1.22 (0.9-1.1)
[2023-07-20 15:36] LABS: Fibrinogen 801 mg/dL (229.9-363.5)
--- NOTE | 2023-07-20 15:37 | PC.NURSE ---
notified ER MD Baron of critical creatinine result
[2023-07-20 15:38] LABS: C-Reactive Protein 32.1 mg/L (0-4)
--- NOTE | 2023-07-20 15:39 | PC.NURSE ---
Dr. Baron & Cardiology WEB DEVELOPMENT DIRECTOR aware of critical Fibrinogen
--- NOTE | 2023-07-20 15:41 | PC.NURSE ---
Bryon from Cardiology clinic at bedside
[2023-07-20 15:54] LABS: Erythrocyte Sedimentation Rate 129 mm/hr (0-20)
--- NOTE | 2023-07-20 15:54 | EXP.CARD.CON ---
History of Present Illness History of Present Illness Consult date: 07/20/23 Requesting physician: Jennifer Baron Chief complaint: PAD History of present illness: 58-year-old white male with past medical history of peripheral artery disease, diabetes mellitus type 2, hypertension, hyperlipidemia, former smoker, end-stage renal disease on nightly peritoneal dialysis presents to emergency department with complaints of bilateral foot pain and lesion to right middle finger since April of this year. patient reports coolness, erythema and pain to bilateral feet, worse with activity. Also reports black lesion to tip of right great toe. Patient reports family doctor has been treating him for MRSA but areas are not improving. Patient underwent angiogram with run off twice in April of this year resulting in lithotripsy to right and left popliteal and superficial femoral arteries followed by drug coated ballon angioplasty. Was sent home on aspirin and low dose xarelto. Reports legs have worsened since then. Labs as follow: WBC 12.6, hemoglobin 12.7, creatinine 10 which is at baseline, sodium 136, potassium 4.0. Patient will be admitted with plan to return to [facility] tomorrow for angiogram with bilateral run and possible stent placement. [facility] Disclaimer: The information contained in this section may have been updated after the patient was seen, as this information can be updated by other users. Medical History Allergies CAD (coronary artery disease) Cholecystectomy planned Cyst of mandible Depression Diabetes Diabetes mellitus, type 2 Dialysis patient Edema Excessive cerumen in right ear canal Glaucoma Heart attack History of cataract History of COVID-19 History of gastroesophageal reflux (GERD) Hyperlipidemia Hypertension Otitis externa of left ear Skin cancer Skin lesions Stroke Surgical History H/O rotator cuff surgery History of coronary artery stent placement History of laparoscopic cholecystectomy Family History Other No significant family history Social History Smoking Status: Former smoker years smoked: 15 how long ago did patient quit smokin second hand exposure: No alcohol intake: never substance use type: denies use current occupational status: unemployed and disabled Travel in the last 8 weeks: None household members: significant other housing: house current occupational exposures/hazards: Yes Review of Systems Review of Systems Review of systems:: pertinent systems reviewed and negative unless documented below *Cardiovascular Cardiovascular: Denies chest pain and Denies dyspnea *Respiratory Respiratory: Denies dyspnea *Musculoskeletal Comments: Bilateral foot pain with erythema noted and coolness noted to toes. Eschar noted to tip of right great toe Exam Data for Last 24 hours Vital signs and Labs for Last 24 Hours: Temp Pulse Resp BP Pulse Ox O2 Del Method 97.8 F 60 18 115/47 L 92 L Room Air 07/20/23 12:26 07/20/23 14:30 07/20/23 12:26 07/20/23 14:30 07/20/23 14:30 07/20/23 14:30 Laboratory Results - last 24 hr 07/20/23 15:09: WBC 12.6 H, RBC 4.33 L, Hgb 12.7 L, Hct 38.6 L, MCV 89.0, MCH 29.4, MCHC 33.0, RDW 18.0 H, Plt Count 290, MPV 8.5, Neut % (Auto) 74.8, Lymph % (Auto) 15.6, [place] % (Auto) 6.5, Eos % (Auto) 2.6, Baso % (Auto) 0.5, Neut # (Auto) 9.4 H, Lymph # (Auto) 2.0, [place] # (Auto) 0.8, Eos # (Auto) 0.3, Baso # (Auto) 0.1, PT 13.0 H, INR 1.22 H, APTT 34.9 H, Fibrinogen 801 H, Sodium 136, Potassium 4.0, Chloride 93 L, Carbon Dioxide 26, Anion Gap 21.0 H, BUN 65 H, Creatinine 10.00 H, Estimated Creat Clear 7, Estimated GFR 5 L*, Est GFR ( Amer) 6 L*, Glucose 149 H, Lactate 0.9, Calcium 7.9 L, Total Bilirubin 0.6, AST 36, ALT 54, Alkaline Phosp
--- NOTE | 2023-07-20 15:58 | PC.NURSE ---
called case management for admission
--- NOTE | 2023-07-20 16:02 | EXP.HP ---
History of Present Illness *Admission Date: 07/21/23 *Reason for visit:: Pain and redness of bilateral feet *History of present illness: Mr. Chino is a 58 year old male with a past medical history of ESRD on peripheral artery disease who presents to the ED with 2-3 days of worsening redness and pain of bilateral toes and feet. In 04/2023 the patient had lithotripsy to the right and left popliteal and superficial femoral arteries followed by drug coated balloon angioplasty. He has been taking aspirin 81mg daily and xarelto 2.5mg bid. Bilateral lower extremity duplex doppler was obtained are with the following results: Waveforms are noted to be monophasic throughout. No flow detected at the right posterior tibial and left anterior tibial arteries. High likelihood of significant inflow lesion. CTA or catheter directed angiography with evaluation of the abdominal aorta and iliac vessels is recommended. Cardiology evaluated the patient and plan for angiography. He denies fever, chest pain and shortness of breath. [facility] Disclaimer: The information contained in this section may have been updated after the patient was seen, as this information can be updated by other users. Medical History Allergies CAD (coronary artery disease) Cholecystectomy planned Cyst of mandible Depression Diabetes Diabetes mellitus, type 2 Dialysis patient Edema Excessive cerumen in right ear canal Glaucoma Heart attack History of cataract History of COVID-19 History of gastroesophageal reflux (GERD) Hyperlipidemia Hypertension Otitis externa of left ear Skin cancer Skin lesions Stroke Surgical History H/O rotator cuff surgery History of coronary artery stent placement History of laparoscopic cholecystectomy Family History Other No significant family history Social History Smoking Status: Former smoker years smoked: 15 how long ago did patient quit smokin second hand exposure: No alcohol intake: never substance use type: denies use current occupational status: unemployed and disabled Travel in the last 8 weeks: None household members: significant other housing: house current occupational exposures/hazards: Yes Review of Systems Review of Systems Review of systems:: pertinent systems reviewed and negative unless documented below ENT Comments: left ear pain *Cardiovascular Comments: pain in bilateral feet *Musculoskeletal Comments: pain in bilateral feet and toes Integumentary/Breasts Skin/Breast: Reports wounds Meds Home Medications and Allergies Home Medications Medication Instructions Recorded Confirmed Type clonidine HCl 0.1 mg tablet 0.2 mg PO Q8H High blood pressure 08/26/22 07/09/23 History pen needle, diabetic 31 gauge x 08/26/22 07/09/23 History 1/4 (Lite Touch Insulin [place]) vit B,C-folic ac 800 mcg-zinc 12.5 1 tab PO DAILY Supplement 08/26/22 07/09/23 History mg-selen-D3 2,000 unit-vit E tablet (RenaPlex-D) minoxidil 2.5 mg tablet 2.5 mg PO BID High blood pressure 09/09/22 07/09/23 Rx #180 tabs atorvastatin 80 mg tablet 80 mg PO DAILY Cholesterol #90 tabs 11/10/22 07/09/23 Rx pantoprazole 40 mg tablet,delayed 40 mg PO DAILY GERD #90 tabs 11/10/22 07/09/23 Rx release (Protonix) sildenafil 100 mg tablet 100 mg PO DAILY PRN sexual 11/10/22 07/09/23 Rx activity #10 tabs cilostazol 100 mg tablet 100 mg PO BID CAD 01/02/23 07/09/23 History calcitriol 0.25 mcg capsule 0.5 mcg PO DAILY Supplement 03/12/23 07/09/23 History sodium bicarbonate 650 mg tablet 650 mg PO TID gerd #60 tabs 04/21/23 07/09/23 Rx aspirin 81 mg tablet,delayed See Rx Instructions .Route 04/30/23 07/09/23 History release .COMPLEX Blood thinner fluoxetine 20 mg capsule 20 mg PO
--- NOTE | 2023-07-20 16:26 | PC.NURSE ---
pt boarding in ER at this time per editor house organ
--- NOTE | 2023-07-20 16:29 | PC.NURSE ---
Called pt's at request of the pt, reviewed plan to admit with her and also reviewed with her the need to bring his self-administered peritoneal dialysis equipment.
--- NOTE | 2023-07-20 16:52 | PC.NURSE ---
Dr. Vegas at BS
--- NOTE | 2023-07-20 17:02 | PC.NURSE ---
Called dietary to request dinner tray
--- NOTE | 2023-07-20 17:30 | PC.NURSE ---
per lead warehouse associate pt assigned to room 201
--- NOTE | 2023-07-20 17:36 | PC.NURSE ---
report called [facility] on second floor.
--- NOTE | 2023-07-20 17:46 | PC.NURSE ---
arrived to floor by w/c from ED
--- NOTE | 2023-07-20 18:31 | PC.NURSE ---
unable to confirm pts home meds at this time
--- NOTE | 2023-07-20 19:05 | PC.NURSE ---
pts family stATES they ar eunabe to bring dialysis machine in and pts dialysis nurse stated [facility] can communicate with nephrology and supply pt the dialysis machine. [facility] is unable to do that, notified charge nurse, dot, and dr dorman for him to communicate with [facility]..
--- NOTE | 2023-07-20 23:36 | PC.NURSE ---
THIS RN NOTIFIED OF THIS PT C/O PAIN; SEE NEW ORDERS
[2023-07-21] VITALS (22 sets, daily range): BP systolic 96–157; BP diastolic 42–100; PULSE 86–104; RESP 12–20; TEMP 36.6–36.9; O2SAT 90–100; BMI 26.4
[2023-07-21 06:45] LABS: POC Glucose,Bedside 200 (70-110)
--- NOTE | 2023-07-21 07:21 | HMH.PHAINT1 ---
Pharmacy Intervention Comments: Medication history complete, medication list verified through fill history. - Peyton French, PharmD Candidate 2023
[2023-07-21 07:27] LABS: Chloride 95 mmol/L (98-107); Sodium 136 mmol/L (136-145)
[2023-07-21 07:28] LABS: Potassium 3.7 mmoL/L (3.5-5.1)
[2023-07-21 07:29] LABS: Basophils # 0.1 K/mm3 (0-0.2); Basophils % 0.6 % (0.1-2.0); Eosinophils # 0.4 K/mm3 (0.0-0.4); Eosinophils % 3.6 % (0.1-12.0); Hematocrit 37.9 % (42.0-52.0); Hemoglobin 11.8 g/dL (14.1-18.0); Lymphocytes # 2.2 K/mm3 (0.7-4.5); Lymphocytes % 17.8 % (10-50); Mean Corpuscular HGB Conc 31.2 g/dL (31.8-35.4); Mean Corpuscular Hemoglobin 28.7 pg (27.0-31.2); Mean Corpuscular Volume 91.8 fl (80-94); Mean Platelet Volume 8.1 fl (7.4-10.4); Monocytes # 0.9 K/mm3 (0.1-1.0); Monocytes % 7.2 % (1.7-9.3); Neutrophils # 8.6 K/mm3 (1.8-7.8); Neutrophils % 70.8 % (37.0-80.0); Platelet Count 252 K/mm3 (142-424); Red Blood Count 4.13 M/mm3 (4.60-6.20); Red Cell Distribution Width 18.1 % (11.5-17.5); White Blood Count 12.1 K/mm3 (4.8-10.8)
[2023-07-21 07:31] LABS: Anion Gap 21.7 mEq/L (5-15); Blood Urea Nitrogen 77 mg/dl (9-20); Calcium 7.9 mg/dl (8.4-10.2); Carbon Dioxide 23 mmol/L (22.0-30.0); Creatinine Clearance Estimated 7 mL/min (50-200); Estimated Glomerular Filt Rate 5 ml/min (>60); GFR (African American) 6 ML/MIN (>60); Glucose 164 mg/dl (74-100)
--- NOTE | 2023-07-21 08:58 | IR_ITS ---
APPROVED REPORT Patient Location: Inpatient PROCEDURES Left femoral arterial access Catheter placed in the right common femoral artery Right common femoral artery antegrade angiogram Right superficial femoral artery and right popliteal artery angiogram Right PT trunk and proximal anterior and posterior tibialis artery angiogram Catheter placement in the right subclavian artery Right subclavian artery antegrade angiogram Retrograde angiography of the common femoral artery with angiography of the left superficial femoral artery left popliteal artery left PT trunk and proximal portions of the left AT and PT INDICATION Clare claudication class V-, Known peripheral artery disease, Limb threatening ischemia, Informed consent was obtained prior to the procedure. COMPLICATIONS NONE Estimated Blood Loss: LESS THAN 10 ML TECHNIQUE 1% lidocaine used anesthetize the left groin left femoral nerves accessed via the center technique and a 5 Bahamian sheath was placed in the femoral artery. Rim catheter was advanced under fluoroscopic guidance into the right common femoral artery where antegrade angiography was performed with unilateral runoff throughout the SFA popliteal artery PT trunk and proximal AT and posterior tibialis artery. Following this retrograde angiography was performed through the left femoral arterial sheath with runoff throughout the left thigh and proximal third of the left calf. Following this the JR4 catheter was advanced into the right subclavian artery were right subclavian artery selective angiography was performed. At the end of procedure the apparatus was removed the patient was transferred to the postop putting in stable condition for sheath removal ANGIOGRAPHIC RESULTS Right common femoral artery is calcified with 40% stenosis. The right profunda femoris artery is patent. The right superficial femoral artery is widely patent and the proximal and midportion. Adductor's canal is widely patent with a 40% eccentric stenosis. The right popliteal artery is patent into the proximal right anterior tibialis artery and right peroneal artery. The right posterior tibialis artery is proximally occluded. Distal angiography was not performed Left common internal and external iliac arteries are patent. The left common femoral artery is patent. The left profunda femoris artery is patent. The left superficial femoral artery has a mid vessel 50% eccentric stenosis. The left popliteal artery is widely patent with diffuse 30 to 40% stenoses. The left anterior tibialis artery is patent in the proximal segment severely diseased with diffuse stenoses into the mid segment. Distal angiography was not performed. The left peroneal artery has proximal calcified 80% stenosis with mid vessel 80 to 90% stenoses. The left posterior tibialis artery is occluded Innominate artery, right subclavian artery and proximal right axillary arteries are widely patent with mild nonflow limiting atheromatous plaque IMPRESSION Widely patent bilateral superficial femoral and popliteal arteries Bilateral posterior tibialis artery occlusion Patency of the bilateral proximal anterior tibialis arteries and peroneal arteries with no distal angiography performed Patent innominate artery with right subclavian and proximal right axillary artery PLAN 1. 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 2. Recommend nephrology evaluation as to guidance for the above lesions which do not appear to be ischemically mediated or the results of embolic disease 3. Patient should be okay from a cardiac standpoint to be discharged home later this evening however recommend nephrology consultation in an outpatient setting Electro
--- NOTE | 2023-07-21 09:17 | EXP.CARD.PN ---
Subjective Subjective Date: 07/21/23 Time: 08:30 Principal diagnosis: Peripheral artery disease Interval history: Patient complaining of bilateral lower extremity pain this morning. Morning labs reviewed. Awaiting procedure this morning. Exam Data for Last 24 hours Vital signs and Labs for Last 24 Hours: Temp Pulse Resp BP Pulse Ox O2 Del Method 98.4 F 100 H 18 137/75 100 Room Air 07/21/23 07:27 07/21/23 07:27 07/21/23 07:27 07/21/23 07:27 07/21/23 07:27 07/21/23 07:27 Laboratory Results - last 24 hr 07/20/23 15:09: WBC 12.6 H, RBC 4.33 L, Hgb 12.7 L, Hct 38.6 L, MCV 89.0, MCH 29.4, MCHC 33.0, RDW 18.0 H, Plt Count 290, MPV 8.5, Neut % (Auto) 74.8, Lymph % (Auto) 15.6, [place] % (Auto) 6.5, Eos % (Auto) 2.6, Baso % (Auto) 0.5, Neut # (Auto) 9.4 H, Lymph # (Auto) 2.0, [place] # (Auto) 0.8, Eos # (Auto) 0.3, Baso # (Auto) 0.1, ESR 129 H, PT 13.0 H, INR 1.22 H, APTT 34.9 H, Fibrinogen 801 H, Sodium 136, Potassium 4.0, Chloride 93 L, Carbon Dioxide 26, Anion Gap 21.0 H, BUN 65 H, Creatinine 10.00 H, Estimated Creat Clear 7, Estimated GFR 5 L*, Est GFR ( Amer) 6 L*, Glucose 149 H, Lactate 0.9, Calcium 7.9 L, Total Bilirubin 0.6, AST 36, ALT 54, Alkaline Phosphatase 131 H, Lactate Dehydrogenase 207 L, C-Reactive Protein 32.1 H, Total Protein 7.1, Albumin 3.7, Globulin 3.4 H, Albumin/Globulin Ratio 1.1 07/21/23 06:38: POC Glucose 200 H 07/21/23 07:01: WBC 12.1 H, RBC 4.13 L, Hgb 11.8 L, Hct 37.9 L, MCV 91.8, MCH 28.7, MCHC 31.2 L, RDW 18.1 H, Plt Count 252, MPV 8.1, Neut % (Auto) 70.8, Lymph % (Auto) 17.8, [place] % (Auto) 7.2, Eos % (Auto) 3.6, Baso % (Auto) 0.6, Neut # (Auto) 8.6 H, Lymph # (Auto) 2.2, [place] # (Auto) 0.9, Eos # (Auto) 0.4, Baso # (Auto) 0.1, Sodium 136, Potassium 3.7, Chloride 95 L, Carbon Dioxide 23, Anion Gap 21.7 H, BUN 77 H, Creatinine 10.80 H, Estimated Creat Clear 7, Estimated GFR 5 L*, Est GFR ( Amer) 6 L*, Glucose 164 H, Calcium 7.9 L I & O for Last 24 hours: Intake & Output 07/18/23 07/19/23 07/20/23 07/21/23 23:59 23:59 23:59 23:59 Intake Total 240 / 240 0 / 0 Output Total 200 / 400 400 / 400 Balance 40 / -160 -400 / -400 Weight 142 lb 143 lb 7 oz Constitutional Constitutional: no acute distress *Routine Respiratory Exam Respiratory: Present CTA bilaterally and symmetric chest movement *Routine Cardiovascular Exam Cardiovascular: Present RRR, Normal S1 and Normal S2 *Routine Abdominal Exam Abdominal: Present soft and normoactive bowel sounds; Absent tenderness *Routine Extremities Exam Extremities: Present full ROM, pallor and extremity cold to touch; Absent edema Comments: erythema noted to toes, eschar noted to right great toe. lesion noted to right middle finger. *Routine Skin Exam Skin: Present intact, dry and warm Detailed Neck Exam: Thyroids Thyroid: Absent bruit Progress Note: A&P Assessment and plan (1) Peripheral arterial disease: Status: Acute (2) ESRD (end stage renal disease): Status: Chronic (3) HLD (hyperlipidemia): Status: Chronic (4) HTN (hypertension): Status: Chronic (5) DM2 (diabetes mellitus, type 2): Status: Chronic Assessment and Plan Assessment and Plan for All Diagnoses:: PVD Ischemia of bilateral feet -04/2023: Lithotripsy to right and left popliteal and superficial femoral arteries followed by drug-coated balloon angioplasty -Continue aspirin 81 mg p.o. daily and Xarelto 2.5 mg p.o. twice daily -Arterial duplex 07/20/2023-no flow detected at the right posterior tibial and left anterior tibial arteries. High likelihood of significant inflow lesion. -Plan to return to [employer] today for angiogram with bilateral runoff End-stage renal disease -Defer to primary service HLD -LDL 43, continue atorvastatin 80 mg p.o. daily Diabetes mellitus -Defer to primary service CV summary 07/21/2023: Return to [employer] today for angiogram with bilateral runoff.
--- NOTE | 2023-07-21 09:23 | PC.NURSE ---
Spoke with Alessandra Pritchett, Nephrology [employer] with Dr. Cheng. Nephrology group is requesting patient to be transferred to [facility] in [place], [place]. Per [employer], due to the patient being on PD vs. HD, they are not okay with him doing his dialysis at [facility]. Did inform Dr. Tony, number for Dr. Cheng given [phone].
[2023-07-21 11:02] LABS: POC Glucose,Bedside 100 (70-110)
--- NOTE | 2023-07-21 14:41 | EXP.DC.SUM ---
General Admission date:: 07/20/23 Discharge date: 07/21/23 HPI HPI HPI: Mr. Chino is a 58 year old male with a past medical history of ESRD on peripheral artery disease who presents to the ED with 2-3 days of worsening redness and pain of bilateral toes and feet. In 04/2023 the patient had lithotripsy to the right and left popliteal and superficial femoral arteries followed by drug coated balloon angioplasty. He has been taking aspirin 81mg daily and xarelto 2.5mg bid. Bilateral lower extremity duplex doppler was obtained are with the following results: Waveforms are noted to be monophasic throughout. No flow detected at the right posterior tibial and left anterior tibial arteries. High likelihood of significant inflow lesion. CTA or catheter directed angiography with evaluation of the abdominal aorta and iliac vessels is recommended. Cardiology evaluated the patient and plan for angiography. He denies fever, chest pain and shortness of breath. Hospital Course Hospital Course Hospital Course: 58 yo M with ESRD who presented with worsening leg and hand pain. Admitted for cardiology eval due to concern for catheterization and further evaluation of his peripheral vascular disease after extensive discussion between ER physician and [employer] Department Manager. . PVD Ischemia of bilateral feet -04/2023: Lithotripsy to right and left popliteal and superficial femoral arteries followed by drug-coated balloon angioplasty. Cardiology consulted to assist in eval of patient during admission. Angiogram with runoff performed during admission. Findings as follows: IMPRESSION Widely patent bilateral superficial femoral and popliteal arteries Bilateral posterior tibialis artery occlusion Patency of the bilateral proximal anterior tibialis arteries and peroneal arteries with no distal angiography performed Patent innominate artery with right subclavian and proximal right axillary artery PLAN 1. 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 2. Recommend nephrology evaluation as to guidance for the above lesions which do not appear to be ischemically mediated or the results of embolic disease 3. Patient should be okay from a cardiac standpoint to be discharged home later this evening however recommend nephrology consultation in an outpatient setting cv stable for dc home. 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 Return to [facility] in 1-2 weeks. -Continue aspirin 81 mg p.o. daily and Xarelto 2.5 mg p.o. twice daily End-stage renal disease -Patient on peritoneal dialysis nightly at home. Missed 1 night of dialysis due to inability to perform PD in our institution, however had stable electrolytes. Sodium 136, potassium 3.7, bicarb 23. Creatinine remained stable at 10. BUN of 77 on morning of discharge. Recommend resuming PD per regular regimen. Patient to follow-up within the next 2 to 3 days with his emergency room physician assistant in [facility]. HLD: LDL 43, continue atorvastatin 80 mg p.o. daily Diabetes mellitus: sliding scale insulin during admission. resume home regimen at discharge. Chronic otitis externa of the left ear: - Initiated on Ciprodex drops in left ear for 1 week due to narrowing of canal. resume home regimen for ESRD and HTN. stable for discharge at home. Exam Data for Last 24 hours Vital signs and Labs for Last 24 Hours: Temp Pulse Resp BP Pulse Ox O2 Del Method 98.4 F 97 H 20 122/66 95 Room Air 07/21/23 11:07 07/21/23 14:09 07/21/23 14:09 07/21/23 14:09 07/21/23 14:09 07/21/23 14:09 Laboratory Results - last 24 hr 07/20/23 15:09: WBC 12.6 H, RBC 4.33 L, Hgb 12.7 L, Hct 38.6 L, MCV 89.0, MCH 29.4, MCHC 33.0, RDW 18.0 H, Plt Count 290, MPV 8.5, Neut % (Auto) 74.8, Lymph % (Auto) 15.6, [place] % (Auto) 6.5, Eos % (Auto) 2.6, Baso % (Auto) 0.5, Neut # (Auto) 9.4 H, Lymph # (Auto) 2.0, [place] # (Auto
[2023-07-21 17:11] LABS: POC Glucose,Bedside 90 (70-110)
--- NOTE | 2023-07-22 13:30 | CARE MANAGER ---
Contacted patient related to hospital discharge. He states he is doing well. He denies questions or concerns and has made his follow up appointments with nephrology and cardiology. [facility]
== END 2023-07-21 19:15 | disposition home or self-care (01) ==
LOC: ER 15:55 → 2ND 16:04
PROVIDERS: Internal Medicine; Admitting Provider Internal Medicine; Emergency Provider Emergency Medicine; PCP Family Medicine; Visit Provider Internal Medicine
DX: I70.213 Atherosclerosis of native arteries of extremities with intermittent claudication, bilateral legs (principal); I10 Essential (primary) hypertension; E78.2 Mixed hyperlipidemia; E11.22 Type 2 diabetes mellitus with diabetic chronic kidney disease; N18.6 End stage renal disease; E11.59 Type 2 diabetes mellitus with other circulatory complications; Z79.4 Long term (current) use of insulin
CPT/HCPCS: 36225; 36247; 36415; 75716; 80048; 80053; 82962; 83605; 83615; 85025; 85384; 85610; 85651; 85730; 86140; 93925; 99152; 99285; C1725; C1769; C1894; G0378; J1644; Q9966

== ENCOUNTER → 2023-08-12 08:27 | Outpatient (CLI) | payer OTHER, SELFPAY ==
[2023-07-24 18:27] LABS: Alanine Aminotransferase 45 U/L (12-78); Albumin Level 2.9 g/dl (3.5-5.0); Alkaline Phosphatase 125 U/L (38-126); Anion Gap 21.9 mEq/L (5-15); Aspartate Amino Transferase 41 U/L (17-59); Bilirubin,Total 0.2 mg/dl (0.2-1.3); Blood Urea Nitrogen 78 mg/dl (9-20); Carbon Dioxide 24 mmol/L (22.0-30.0); Chloride 93 mmol/L (98-107); Estimated Glomerular Filt Rate 7 ml/min (>60); GFR (African American) 8 ML/MIN (>60); Globulin 2.8 g/dL (1.3-3.2); Glucose 150 mg/dl (74-100); Potassium 3.9 mmoL/L (3.5-5.1); Sodium 135 mmol/L (136-145); Total Protein,Serum 5.7 g/dl (6.3-8.2)
== END ==
PROVIDERS: PCP Family Medicine; Visit Provider Family Medicine
DX: S61.401A Unspecified open wound of right hand, initial encounter (principal)
CPT/HCPCS: 80053